=== PATIENT | female | born 1960 | race Caucasian/White ===

== ENCOUNTER 2016-11-26 22:43 | Emergency (ER) | payer OTHER ==
[2016-11-26 22:58] VITALS: BP 121/71
--- NOTE | 2016-11-26 23:01 | EDM.PDOC ---
ED HPI GENERAL MEDICAL PROBLEM - General Chief Complaint: Genitourinary Problem Stated Complaint: ABD PAIN Time Seen by Provider: 11/26/16 22:56 Source of Information: Reports: Patient History Limitations: Reports: No limitations - History of Present Illness INITIAL COMMENTS - FREE TEXT/NARRATIVE: 56 yo [place] Female c/o low abdomen pain since Thursday with frequent urination. Denies fever or chills or back pain. Pt. states she stopped her menses @ 50yo and has now noted some spotting. Onset Date: 11/23/16 Onset Time: 12:00 Duration: Day(s): Location: Reports: abdomen (low abdomen) Quality: Reports: Ache, Burning Associated Symptoms: Reports: no other symptoms Lower Abdomen Pain Score (Numeric/FACES): 7 - Related Data Allergies Allergy/AdvReac Type Severity Reaction Status Date / Time No Known Allergies Allergy Verified 11/26/16 22:53 Home Meds: Home Meds traMADol [Ultram] 50 mg PO ASDIRECTED PRN 09/12/16 [History] Past Medical History - Past Health History Medical/Surgical History: Denies Medical/Surgical History HEENT History: Reports: None Cardiovascular History: Reports: None Respiratory History: Reports: None Gastrointestinal History: Reports: None Genitourinary History: Reports: None 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 Musculoskeletal History: Reports: Arthritis, Osteoarthritis Neurological History: Reports: None Psychiatric History: Reports: None Endocrine/Metabolic History: Reports: None Hematologic History: Reports: None Immunologic History: Reports: None Oncologic (Cancer) History: Reports: None Dermatologic History: Reports: None - Infectious Disease History Infectious Disease History: Reports: None - Past Surgical History Head Surgeries/Procedures: Reports: None Other Musculoskeletal Surgeries/Procedures:: arm surgery Social & Family History - Family History Family Medical History: Noncontributory - Tobacco Use Smoking Status *Q: Current Every Day Smoker Years of Tobacco use: 10 Packs/Tins Daily: 0.2 Used Tobacco, but Quit: No Month Tobacco Last Used: august Second Hand Smoke Exposure: Yes - Caffeine Use Caffeine Use: Reports: Coffee - Alcohol Use Days Per Week of Alcohol Use: 0 - Recreational Drug Use Recreational Drug Use: No - Living Situation & Occupation Living situation: Reports: , with family Occupation: employed ED ROS GENERAL - Review of Systems Review Of Systems: See Below Constitutional: Reports: no symptoms HEENT: Reports: No symptoms Respiratory: Reports: No Symptoms Cardiovascular: Reports: No symptoms Endocrine: Reports: no symptoms GI/Abdominal: Reports: Abdominal pain (low abdomen/ supra pubic) : Reports: pain, urgency Musculoskeletal: Reports: no symptoms Skin: Reports: no symptoms Neurological: Reports: No Symptoms Psychiatric: Reports: No symptoms Hematologic/Lymphatic: Reports: no symptoms Immunologic: Reports: no symptoms ED EXAM, GENERAL - Physical Exam Exam: See Below Exam Limited By: No limitations General Appearance: no apparent distress, obese Eye Exam: bilateral eye: EOMI Nose: normal inspection Throat/Mouth: Normal inspection Head: atraumatic Neck: normal inspection Respiratory/Chest: no respiratory distress, lungs clear Cardiovascular: normal peripheral pulses, regular rate, rhythm GI/Abdominal: tender (supra pubic area) Back Exam: normal inspection Extremities: normal inspection Neurological: alert, oriented Psychiatric: normal affect Skin Exam: Warm Lymphatic: no adenopathy Course - Vital Signs Last Recorded V/S: Last Vital Signs Temp 35.4 C 11/26/16 22:50 Pulse 75 11/26/16 22:50 Resp 18 11/26/16 22:50 BP 121/71 11/26/16 22:50 Pulse Ox 99 11/26/16 22:50 - Orders/Labs/Meds Orders: Active Orders 24 hr Category Date Time Status CULTURE URINE [RM] Stat Lab 11/26/16 22:52 Received Labs: Laboratory Tests 11/26/16 Range/Units 22:52 Urine Color Yellow (YELLOW) Urine Appearance Turbid (CLEAR) Urine pH 6.0 (5.0-9.0) Ur Specific [place] >= 1.030 (1.005-1.030) Urine Protein 100 H (NEGATIVE) Urine Glucose (UA) Negative (NEGATIVE) Urine Ketones Trace H (NEGATIVE) Urine Occult Blood Large H (NEGATIVE) Urine Nitrite Negative (NEGATIVE) Urine Bilirubin Negative (NEGATIVE) Urine Urobilinogen 0.2 (0.2-1.0) mg/dL Ur Leukocyte Esterase Small H (NEGATIVE) Urine RBC >100 H /HPF Urine WBC 30-40 H (0-5/HPF) /HPF Ur Epithelial Cells Few /HPF Urine Bacteria Many H (0-FEW/HPF) /HPF Meds: Medications Discontinued Medications Generic Name Dose Route Start Last Admin Trade Name Freq PRN Reason Stop Dose Admin Levofloxacin 500 mg 11/26/16 23:11 11/26/16 23:26 Levaquin PO 11/26/16 23:12 500 mg ONETIME ONE Administration Phenazopyridine HCl 190 mg 11/26/16 23:11 11/26/16 23:22 Urinary Pain Relief PO 11/26/16 23:12 190 mg ONETIME ONE Administration Departure - Departure Time of Disposition: 23:27 Disposition: Home, Self-Care 01 Condition: good Clinical Impression: UTI (urinary tract infection) Qualifiers: Urinary tract infection type: acute cystitis Hematuria presence: with hematuria Qualified Code(s): N30.01 - Acute cystitis with hematuria Instructions: Urinary Tract Infection, Adult, [id number] Forms: ED Department Discharge Additional Instructions: Increase intake of fluids ( Water / Cranberry Juice) Take Medication as prescribed and complete: Levaquin 500mg QD # 6 Pyridium 100mg take 1 TID # 9 Off work slip given F/U w/ PCP - My Orders Last 24 Hours: My Active Orders 11/26/16 22:52 CULTURE URINE [RM] Stat - Assessment/Plan Last 24 Hours: My Active Orders 11/26/16 22:52 CULTURE URINE [RM] Stat
[2016-11-26] MEDS ORDERED: Phenazopyridine 95 MG Tab PO ONE (23:11)
[2016-11-26] MEDS ORDERED: Levofloxacin 500 MG Tab PO ONE (23:11)
[2016-11-26] MEDS ORDERED: Levofloxacin 500 MG Tab ONE (23:25)
== END 2016-11-26 23:39 | disposition home or self-care (01) ==
LOC: DL.ED 22:43
DX: N30.01 Acute cystitis with hematuria (principal); M19.90 Unspecified osteoarthritis, unspecified site; F17.210 Nicotine dependence, cigarettes, uncomplicated
CPT/HCPCS: 81001; 87086; 99283; A9270; 87088; 87186

== ENCOUNTER 2017-01-27 17:32 | Emergency (ER) | payer OTHER ==
[2017-01-27 18:06] VITALS: BP 130/52
--- NOTE | 2017-01-27 19:54 | EDM.PDOC ---
ED HPI GENERAL MEDICAL PROBLEM - General Chief Complaint: Lower Extremity Injury/Pain Stated Complaint: KNEE PAIN/[id number] Time Seen by Provider: 01/27/17 19:52 Source of Information: Reports: Patient History Limitations: Reports: No Limitations - History of Present Illness INITIAL COMMENTS - FREE TEXT/NARRATIVE: pain left knee since . Has had shots in knee couple months ago wonders if worn off. No injury. Has ortho appointment scheduled. Left Knee Pain Score (Numeric/FACES): 8 - Related Data Allergies Allergy/AdvReac Type Severity Reaction Status Date / Time No Known Allergies Allergy Verified 01/27/17 18:24 Home Meds: Home Meds . 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 Musculoskeletal History: Reports: Arthritis, Osteoarthritis Neurological History: Reports: None Psychiatric History: Reports: None Endocrine/Metabolic History: Reports: None Hematologic History: Reports: None Immunologic History: Reports: None Oncologic (Cancer) History: Reports: None Dermatologic History: Reports: None - Infectious Disease History Infectious Disease History: Reports: None - Past Surgical History Head Surgeries/Procedures: Reports: None Other Musculoskeletal Surgeries/Procedures:: arm surgery Social & Family History - Family History Family Medical History: Noncontributory - Tobacco Use Smoking Status *Q: Current Every Day Smoker Years of Tobacco use: 10 Packs/Tins Daily: 0.2 Used Tobacco, but Quit: No Month Tobacco Last Used: august Hand Smoke Exposure: Yes - Caffeine Use Caffeine Use: Reports: Coffee - Alcohol Use Days Per Week of Alcohol Use: 0 - Recreational Drug Use Recreational Drug Use: No - Living Situation & Occupation Living situation: Reports: , with Family Occupation: Employed Review of Systems - Review of Systems Review Of Systems: See Below Constitutional: Reports: No Symptoms Musculoskeletal: Reports: Joint Pain (left knee pain), Joint Swelling Skin: Reports: No Symptoms Trauma Exam - Physical Exam Exam: See Below Exam Limited By: No Limitations General Appearance: Reports: Alert, Mild Distress Head: Reports: Atraumatic, Normocephalic Ears: Reports: Normal External Exam Nose: Reports: Normal Inspection Throat/Mouth: Reports: Normal Inspection Respiratory Exam: Reports: No Respiratory Distress Cardiovascular: Reports: Normal Peripheral Pulses Extremities: No Evidence of Injury, Normal Range of Motion, Tenderness (below patella, slight swelling medial lower aspect, no redness or warmth. No crepitus. ), Other (increased pain with weight bearing, gait steady non antalgic.) Skin: Reports: Normal Color, Warm/Dry Course - Vital Signs Last Recorded V/S: Last Vital Signs Temp 98.2 F 01/27/17 18:05 Pulse 81 01/27/17 18:05 Resp 18 01/27/17 18:05 BP 130/52 L 01/27/17 18:05 Pulse Ox 100 01/27/17 18:05 Departure - Departure Time of Disposition: 20:16 Disposition: Home, Self-Care 01 Condition: good Clinical Impression: Left knee pain Qualifiers: Chronicity: chronic Qualified Code(s): M25.562 - Pain in left knee - Discharge Information Instructions: Knee Pain Forms: ED Department Discharge Additional Instructions: alternate tylenol and ibuprofen for discomfort rest, ice follow up in clinic
== END 2017-01-27 20:25 | disposition home or self-care (01) ==
LOC: DL.ED 17:32
DX: M25.562 Pain in left knee (principal); M19.90 Unspecified osteoarthritis, unspecified site; F17.210 Nicotine dependence, cigarettes, uncomplicated; Z98.890 Other specified postprocedural states
CPT/HCPCS: 73560-LT; 99283

== ENCOUNTER 2017-06-09 20:30 | Emergency (ER) | payer OTHER, MEDICAID ==
[2017-06-09 20:52] VITALS: BP 157/63
--- NOTE | 2017-06-10 00:09 | EDM.PDOC ---
ED HPI GENERAL MEDICAL PROBLEM - General Stated Complaint: INJURED HAND Time Seen by Provider: 06/10/17 00:05 Source of Information: Reports: Patient History Limitations: Reports: No Limitations - History of Present Illness INITIAL COMMENTS - FREE TEXT/NARRATIVE: This 57 yo female patient reports to the ED with pain and swelling in her right hand. The patient reports she got her hand stuck in a window that was being closed. The patient reports increased swelling and pain in her right hand since the incident. Onset: Today Duration: Constant Location: Reports: Upper Extremity, Right Quality: Reports: Ache, Dull, Throbbing Severity: Moderate Improves with: Reports: Rest Worsens with: Reports: Movement Context: Reports: Trauma Associated Symptoms: Reports: No Other Symptoms Right Hand Pain Score (Numeric/FACES): 10 - Related Data Allergies Allergy/AdvReac Type Severity Reaction Status Date / Time No Known Allergies Allergy Verified 01/27/17 18:24 Home Meds: Home Meds . 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 Musculoskeletal History: Reports: Arthritis, Osteoarthritis Neurological History: Reports: None Psychiatric History: Reports: None Endocrine/Metabolic History: Reports: None Hematologic History: Reports: None Immunologic History: Reports: None Oncologic (Cancer) History: Reports: None Dermatologic History: Reports: None - Infectious Disease History Infectious Disease History: Reports: None - Past Surgical History Head Surgeries/Procedures: Reports: None Other Musculoskeletal Surgeries/Procedures:: arm surgery Social & Family History - Family History Family Medical History: Noncontributory - Tobacco Use Smoking Status *Q: Current Every Day Smoker Years of Tobacco use: 10 Packs/Tins Daily: 0.2 Used Tobacco, but Quit: No Month Tobacco Last Used: august Hand Smoke Exposure: Yes - Caffeine Use Caffeine Use: Reports: Coffee - Alcohol Use Days Per Week of Alcohol Use: 0 - Recreational Drug Use Recreational Drug Use: No - Living Situation & Occupation Living situation: Reports: , with Family Occupation: Employed Review of Systems - Review of Systems Review Of Systems: ROS reveals no pertinent complaints other than HPI. ED EXAM, GENERAL - Physical Exam Exam: See Below Exam Limited By: No Limitations General Appearance: Alert, WD/WN, Mild Distress Eye Exam: Bilateral Eye: EOMI, Normal Inspection, PERRL Ears: Normal External Exam, Normal Canal, Hearing Grossly Normal, Normal TMs Nose: Normal Inspection, Normal Mucosa, No Blood Throat/Mouth: Normal Inspection, Normal Lips, Normal Teeth, Normal Gums, Normal Oropharynx, Normal Voice, No Airway Compromise Head: Atraumatic, Normocephalic Neck: Normal Inspection, Supple, Non-Tender, Full Range of Motion Respiratory/Chest: No Respiratory Distress, Lungs Clear, Normal Breath Sounds, No Accessory Muscle Use, Chest Non-Tender Cardiovascular: Normal Peripheral Pulses, Regular Rate, Rhythm, No Edema, No Gallop, No JVD, No Murmur, No Rub GI/Abdominal: Normal Bowel Sounds, Soft, Non-Tender, No Organomegaly, No Distention, No Abnormal Bruit, No Mass (Female) Exam: Deferred Rectal (Female) Exam: Deferred Back Exam: Normal Inspection, Full Range of Motion, NT Extremities: Joint Swelling (right hand 2nd and 3rd MCP joints) Neurological: Alert, Oriented, CN II-XII Intact, Normal Cognition, Normal Gait, Normal Reflexes, No Motor/Sensory Deficits Psychiatric: Normal Affect, Normal Mood Skin Exam: Warm, Dry, Intact, Normal Color, No Rash Lymphatic: No Adenopathy Course - Vital Signs Last Recorded V/S: Last Vital Signs Temp 36.7 C 06/09/17 20:48 Pulse 82 06/09/17 20:48 Resp 20 06/09/17 20:48 BP 157/63 H 06/09/17 20:48 Pulse Ox 97 06/09/17 20:48 Departure - Departure Time of Disposition: 00:10 Disposition: Home, Self-Care 01 Condition: Fair Clinical Impression: Contusion of right hand Qualifiers: Encounter type: initial encounter Qualified Code(s): S60.221A - Contusion of right hand, initial encounter - Discharge Information Instructions: Hand Contusion, [id number] Forms: ED Department Discharge Care Plan Goals: The patient was advised of the examination and x-ray results during the visit. The patient's hand was wrapped with an TABITHA wrap and an ice pack was applied. The patient was encouraged to rest, ice, compress and elevate the injured extremity. If the patient has any additional symptoms or concerns, the patient should follow-up with her primary care facility or return to the emergency department.
== END 2017-06-10 00:14 | disposition home or self-care (01) ==
LOC: DL.ED 20:30
DX: S60.221A Contusion of right hand, initial encounter (principal); M25.441 Effusion, right hand; F17.210 Nicotine dependence, cigarettes, uncomplicated; W23.0XXA Caught, crushed, jammed, or pinched between moving objects, initial encounter
CPT/HCPCS: 73130-RT; 99283

== ENCOUNTER 2018-01-17 18:54 | Emergency (ER) | payer MEDICAID, OTHER ==
[2018-01-17] MEDS ORDERED: Hydrocortisone/Neomycin/Polymyxin B Otic Susp 10 ML Bottle EARRT ONE (18:55)
[2018-01-17 19:58] VITALS: BP 121/58
[2018-01-17] MEDS ORDERED: Acetaminophen/HYDROcodone 325-10 MG Tab PO ONE (20:17)
[2018-01-17] MEDS ORDERED: Amoxicillin 500 MG Cap PO ONE (20:17)
--- NOTE | 2018-01-17 20:24 | EDM.PDOC ---
ED HPI GENERAL MEDICAL PROBLEM - General Chief Complaint: ENT Problem Stated Complaint: POSSIBEL BUG BITE Time Seen by Provider: 01/17/18 20:19 Source of Information: Reports: Patient History Limitations: Reports: No Limitations - History of Present Illness INITIAL COMMENTS - FREE TEXT/NARRATIVE: c/o right ear pain today and noticed swelling in area. last time had bad ear infection 5 years ago. Right Ear Pain Score (Numeric/FACES): 8 - Related Data Allergies Allergy/AdvReac Type Severity Reaction Status Date / Time No Known Allergies Allergy Verified 01/17/18 19:52 Home Meds: Home Meds . 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 Musculoskeletal History: Reports: Arthritis, Osteoarthritis Neurological History: Reports: None Psychiatric History: Reports: None Endocrine/Metabolic History: Reports: None Hematologic History: Reports: None Immunologic History: Reports: None Oncologic (Cancer) History: Reports: None Dermatologic History: Reports: None - Infectious Disease History Infectious Disease History: Reports: None - Past Surgical History Head Surgeries/Procedures: Reports: None Other Musculoskeletal Surgeries/Procedures:: arm surgery Social & Family History - Family History Family Medical History: Noncontributory - Tobacco Use Smoking Status *Q: Current Some Day Smoker Years of Tobacco use: 10 Packs/Tins Daily: 0.1 - Caffeine Use Caffeine Use: Reports: Coffee, Tea - Recreational Drug Use Recreational Drug Use: No - Living Situation & Occupation Living situation: Reports: , with Family Occupation: Employed ED ROS ENT - Review of Systems Review Of Systems: ROS reveals no pertinent complaints other than HPI. ED EXAM, ENT - Physical Exam Exam: See Below Exam Limited By: No Limitations General Appearance: Alert, WD/WN, Mild Distress, Other (ear pain) Ears: Canal Swelling, TM Erythema, Other (right) Nose: Normal Inspection Mouth/Throat: Normal Inspection Head: Atraumatic Neck: Non-Tender, Full Range of Motion, Lymphadenopathy (R), Other (post auricular) Respiratory/Chest: No Respiratory Distress Cardiovascular: Regular Rate, Rhythm GI/Abdominal: Soft, Non-Tender Neurological: Alert, Oriented, Normal Cognition, Normal Gait, No Motor/Sensory Deficits Psychiatric: Tearful Skin: Warm, Dry, Normal Color Lymphatic: Other (right leandra auricular) Course - Vital Signs Last Recorded V/S: Last Vital Signs Temp 36.7 C 01/17/18 19:52 Pulse 66 01/17/18 19:52 Resp 16 01/17/18 19:52 BP 121/58 L 01/17/18 19:52 Pulse Ox 100 01/17/18 19:52 - Orders/Labs/Meds Meds: Medications Discontinued Medications Generic Name Dose Route Start Last Admin Trade Name Freq PRN Reason Stop Dose Admin Hydrocodone Bitart/Acetaminophen 1 tab 01/17/18 20:17 [place] 325-10 Mg PO 01/17/18 20:18 ONETIME ONE Amoxicillin 500 mg 01/17/18 20:17 Amoxil PO 01/17/18 20:18 ONETIME ONE Departure - Departure Time of Disposition: 20:22 Disposition: Home, Self-Care 01 Condition: Good Clinical Impression: Otitis externa Qualifiers: Otitis externa type: other infective Chronicity: acute Laterality: right Qualified Code(s): H60.391 - Other infective otitis externa, right ear Otitis media Qualifiers: Otitis media type: suppurative Chronicity: acute Laterality: right Recurrence: not specified as recurrent Spontaneous tympanic membrane rupture: without spontaneous rupture Qualified Code(s): H66.001 - Acute suppurative otitis media without spontaneous rupture of ear drum, right ear - Discharge Information Instructions: Otitis Externa, [id number] Additional Instructions: 1) don't get water into right ear 2) follow up at clinic 3) recheck as needed rx given; amox 250mg tid x 30 vicodin 5/325mg bid prn x 6 rx togo; corticosporin otic 2 drops qid x 1 week
[2018-01-17] MEDS ORDERED: Hydrocortisone/Neomycin/Polymyxin B Otic Susp 10 ML Bottle ONE (20:32)
== END 2018-01-17 20:45 | disposition home or self-care (01) ==
LOC: DL.ED 18:54
DX: H60.391 Other infective otitis externa, right ear (principal); H66.001 Acute suppurative otitis media without spontaneous rupture of ear drum, right ear; F17.210 Nicotine dependence, cigarettes, uncomplicated
CPT/HCPCS: 99282; A9270

== ENCOUNTER 2018-03-07 20:36 | Emergency (ER) | payer MEDICAID, OTHER ==
[2018-03-07 21:07] VITALS: BP 116/48
== END 2018-03-07 23:34 | disposition left against medical advice (07) ==
LOC: DL.ED 20:36
DX: Z53.21 Procedure and treatment not carried out due to patient leaving prior to being seen by health care provider (principal)

== ENCOUNTER 2018-05-13 00:25 | Emergency (ER) | payer MEDICAID, OTHER ==
[2018-05-13] MEDS ORDERED: Meclizine 12.5 MG Tab PO ONE ×2 (00:26→00:55)
[2018-05-13] MEDS ORDERED: Ondansetron 4 MG Tab.DIS PO ONE ×2 (00:26→00:55)
[2018-05-13 00:45] VITALS: BP 147/55
[2018-05-13] MEDS ORDERED: Ketorolac 30 MG/ML SDV IVPUSH ONE (00:59)
[2018-05-13] MEDS ORDERED: Ketorolac 30 MG/ML SDV IM ONE (01:06)
[2018-05-13] MEDS ORDERED: Ondansetron 4 MG Tab.DIS ONE (01:38)
[2018-05-13] MEDS ORDERED: Meclizine 12.5 MG Tab ONE (01:39)
--- NOTE | 2018-05-13 01:43 | EDM.PDOC ---
ED HPI GENERAL MEDICAL PROBLEM - General Chief Complaint: General Stated Complaint: LIGHTHEADED, DIZZY, VOMITING [id number] Time Seen by Provider: 05/13/18 00:30 Source of Information: Reports: Patient History Limitations: Reports: No Limitations - History of Present Illness INITIAL COMMENTS - FREE TEXT/NARRATIVE: Cold sx x one week, past 24 hours increased ear pain starting on left now some on right ear, dizzy, worse with movement and turning head, similar symptoms in past. Nausea with vomiting with movement. No fever or chills. No weakness , sinus type headache. 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 Musculoskeletal History: Reports: Arthritis, Osteoarthritis Neurological History: Reports: None Psychiatric History: Reports: None Endocrine/Metabolic History: Reports: None Hematologic History: Reports: None Immunologic History: Reports: None Oncologic (Cancer) History: Reports: None Dermatologic History: Reports: None - Infectious Disease History Infectious Disease History: Reports: None - Past Surgical History Head Surgeries/Procedures: Reports: None Other Musculoskeletal Surgeries/Procedures:: arm surgery Social & Family History - Family History Family Medical History: Noncontributory - Tobacco Use Smoking Status *Q: Current Every Day Smoker Years of Tobacco use: 40 Packs/Tins Daily: 3 - Caffeine Use Caffeine Use: Reports: None - Recreational Drug Use Recreational Drug Use: No - Living Situation & Occupation Living situation: Reports: , with Family Occupation: Employed ED ROS GENERAL - Review of Systems Review Of Systems: ROS reveals no pertinent complaints other than HPI. ED EXAM, GENERAL - Physical Exam Exam: See Below Exam Limited By: No Limitations General Appearance: Alert, Mild Distress Eye Exam: Bilateral Eye: EOMI, PERRL Ears: Normal External Exam Ear Exam: Bilateral Ear: TM Dull (fluid bilateral greater on left) Nose: Normal Inspection Throat/Mouth: Normal Inspection Head: Atraumatic, Normocephalic, Sinus Tenderness (frontal ethmoid) Neck: Normal Inspection, Non-Tender, Full Range of Motion Respiratory/Chest: No Respiratory Distress, Lungs Clear, Normal Breath Sounds Cardiovascular: Normal Peripheral Pulses, Regular Rate, Rhythm GI/Abdominal: Normal Bowel Sounds Extremities: Normal Inspection, Normal Range of Motion Neurological: Alert, Oriented, Normal Cognition, Normal Reflexes, No Motor/ Sensory Deficits. No: Sensory/Motor Deficit Psychiatric: Normal Affect, Normal Mood Course - Vital Signs Last Recorded V/S: Last Vital Signs Temp 97.2 F 05/13/18 00:29 Pulse 70 05/13/18 00:29 Resp 19 05/13/18 00:29 BP 147/55 H 05/13/18 00:29 Pulse Ox 98 05/13/18 00:29 Orthostatic Blood Pressure [ 136/54 Supine] Orthostatic Blood Pressure [ 127/54 Standing] Orthostatic Blood Pressure [ 147/55 Sitting] - Orders/Labs/Meds Meds: Medications Discontinued Medications Generic Name Dose Route Start Last Admin Trade Name Chrisq PRN Reason Stop Dose Admin Ketorolac Tromethamine 30 mg 05/13/18 00:59 05/13/18 01:08 Toradol IVPUSH 05/13/18 01:00 Not Given ONETIME ONE Ketorolac Tromethamine 30 mg 05/13/18 01:06 05/13/18 01:08 Toradol IM 05/13/18 01:07 30 mg ONETIME ONE Administration Meclizine HCl 25 mg 05/13/18 00:55 05/13/18 01:03 Antivert PO 05/13/18 00:56 25 mg ONETIME ONE Administration Ondansetron HCl 4 mg 05/13/18 00:55 05/13/18 01:02 Zofran Odt PO 05/13/18 00:56 4 mg ONETIME ONE Administration Departure - Departure Time of Disposition: 01:37 Disposition: Home, Self-Care 01 Condition: Good Clinical Impression: Labyrinthitis of left ear URI (upper respiratory infection) Qualifiers: URI type: unspecified URI Qualified Code(s): J06.9 - Acute upper respiratory infection, unspecified - Discharge Information *PRESCRIPTION DRUG MONITORING PROGRAM REVIEWED*: Not Applicable Instructions: Labyrinthitis, [id number] Additional Instructions: rest, change position slowly drink fluids, slowly advance diet as tolerated axithromycin 500mg today then 200mg daily for 4 days meclizine 25mg every 6 hours as needed for dizziness zofran ODT 4mg one every 6 hours as needed for nausea vomiting follow up if symptoms worsen
== END 2018-05-13 01:50 | disposition home or self-care (01) ==
LOC: DL.ED 00:25
DX: H83.02 Labyrinthitis, left ear (principal); J06.9 Acute upper respiratory infection, unspecified; F17.210 Nicotine dependence, cigarettes, uncomplicated
CPT/HCPCS: 96372; 99283; A9270; J1885

== ENCOUNTER 2019-08-22 02:56 | Emergency (ER) | payer MEDICAID, OTHER ==
[2019-08-22] MEDS ORDERED: Phenazopyridine 95 MG Tab PO ONE (03:08)
--- NOTE | 2019-08-22 03:08 | EDM.PDOC ---
ED HPI GENERAL MEDICAL PROBLEM - General Chief Complaint: Genitourinary Problem Stated Complaint: AMBULANCE Time Seen by Provider: 08/22/19 03:04 Source of Information: Reports: Patient History Limitations: Reports: No Limitations - History of Present Illness INITIAL COMMENTS - FREE TEXT/NARRATIVE: onset suprapubic pain yesterday then tonight started peeing blood. 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 Musculoskeletal History: Reports: Arthritis, Osteoarthritis Neurological History: Reports: None Psychiatric History: Reports: Anxiety, Depression Endocrine/Metabolic History: Reports: None Hematologic History: Reports: None Immunologic History: Reports: None Oncologic (Cancer) History: Reports: None Dermatologic History: Reports: None - Infectious Disease History Infectious Disease History: Reports: None - Past Surgical History Head Surgeries/Procedures: Reports: None Other Musculoskeletal Surgeries/Procedures:: arm surgery Social & Family History - Family History Family Medical History: Noncontributory - Caffeine Use Caffeine Use: Reports: Coffee - Living Situation & Occupation Living situation: Reports: , with Family Occupation: Employed ED ROS GENERAL - Review of Systems Review Of Systems: Comprehensive ROS is negative, except as noted in HPI. ED EXAM, RENAL/ - Physical Exam Exam: See Below Exam Limited By: No Limitations General Appearance: Alert, WD/WN, Mild Distress, Other (discomfort). No: Active Emesis Ears: Hearing Grossly Normal Throat/Mouth: Normal Voice, No Airway Compromise Head: Atraumatic Neck: Non-Tender, Full Range of Motion Respiratory/Chest: No Respiratory Distress Cardiovascular: Regular Rate, Rhythm GI/Abdominal: Tender, Other (suprapubic). No: Distended, Guarding, Rigid, Rebound Neurological: Alert, Oriented, Normal Cognition, Normal Gait, No Motor/Sensory Deficits Psychiatric: Tearful Skin Exam: Warm, Dry, Normal Color Lymphatic: No Adenopathy Course - Vital Signs Last Recorded V/S: Last Vital Signs Temp 36.6 C 08/22/19 06:25 Pulse 76 08/22/19 06:25 Resp 17 08/22/19 06:25 BP 127/65 08/22/19 06:25 Pulse Ox 100 08/22/19 06:25 - Orders/Labs/Meds Labs: Laboratory Tests 08/22/19 08/22/19 08/22/19 Range/Units 03:00 03:09 03:09 WBC 18.2 H (5.0-10.0) 10^3/uL RBC 4.52 (4.2-5.4) 10^6/uL Hgb 12.3 (12.0-16.0) g/dL Hct 37.9 (37.0-47.0) % MCV 83.8 D (80-100) fL MCH 27.2 (27.0-34.0) pg MCHC 32.5 L (33.0-35.0) g/dL Plt Count 388 (150-450) 10^3/uL Neut % (Auto) 79.3 H (42.2-75.2) % Lymph % (Auto) 12.9 L (20.5-50.1) % Carroll % (Auto) 5.9 (2-8) % Eos % (Auto) 1.6 (1.0-3.0) % Baso % (Auto) 0.3 (0.0-1.0) % PT 8.9 L (9.0-12.0) SEC INR 0.9 (0.9-1.2) APTT 31.2 (22.0-34.0) SEC Sodium (135-145) mmol/L Potassium (3.6-5.0) mmol/L Chloride (101-111) mmol/L Carbon Dioxide (21.0-31.0) mmol/L Anion Gap BUN (7-18) mg/dL Creatinine (0.6-1.3) mg/dL Est Cr Clr Drug Dosing mL/min Estimated GFR (MDRD) BUN/Creatinine Ratio Glucose (74-105) mg/dL Lactic Acid (0.5-2.2) mmol/L Calcium (8.4-10.2) mg/dl Total Bilirubin (0.2-1.0) mg/dL AST (10-42) IU/L ALT (10-60) IU/L Alkaline Phosphatase (42-121) IU/L Total Protein (6.7-8.2) g/dl Albumin (3.2-5.5) g/dl Globulin Albumin/Globulin Ratio Urine Color Yellow (YELLOW) Urine Appearance Cloudy (CLEAR) Urine pH 5.5 (5.0-9.0) Ur Specific Patten >= 1.030 (1.005-1.030) Urine Protein >=300 H (NEGATIVE) Urine Glucose (UA) Negative (NEGATIVE) Urine Ketones Negative (NEGATIVE) Urine Occult Blood Large H (NEGATIVE) Urine Nitrite Negative (NEGATIVE) Urine Bilirubin Negative (NEGATIVE) Urine Urobilinogen 0.2 (0.2-1.0) mg/dL Ur Leukocyte Esterase Large H (NEGATIVE) Urine RBC >100 H /HPF Urine WBC >100 H (0-5/HPF) /HPF Ur Epithelial Cells Few (NOT SEEN) /HPF Urine Bacteria Many H (0-FEW/HPF) /HPF Urine Mucus Few H (NOT SEEN) /LPF 08/22/19 08/22/19 Range/Units 03:09 03:09 WBC (5.0-10.0) 10^3/uL RBC (4.2-5.4) 10^6/uL Hgb (12.0-16.0) g/dL Hct (37.0-47.0) % MCV (80-100) fL MCH (27.0-34.0) pg MCHC (33.0-35.0) g/dL Plt Count (150-450) 10^3/uL Neut % (Auto) (42.2-75.2) % Lymph % (Auto) (20.5-50.1) % Carroll % (Auto) (2-8) % Eos % (Auto) (1.0-3.0) % Baso % (Auto) (0.0-1.0) % PT (9.0-12.0) SEC INR (0.9-1.2) APTT (22.0-34.0) SEC Sodium 136 (135-145) mmol/L Potassium 4.1 (3.6-5.0) mmol/L Chloride 102 (101-111) mmol/L Carbon Dioxide 26.0 (21.0-31.0) mmol/L Anion Gap 12.1 BUN 10 (7-18) mg/dL Creatinine 0.7 (0.6-1.3) mg/dL Est Cr Clr Drug Dosing 68.44 mL/min Estimated GFR (MDRD) > 60 BUN/Creatinine Ratio 14.28 Glucose 145 H (74-105) mg/dL Lactic Acid 2.2 (0.5-2.2) mmol/L Calcium 8.6 (8.4-10.2) mg/dl Total Bilirubin 0.3 (0.2-1.0) mg/dL AST 34 (10-42) IU/L ALT 38 (10-60) IU/L Alkaline Phosphatase 101 (42-121) IU/L Total Protein 7.5 (6.7-8.2) g/dl Albumin 3.9 (3.2-5.5) g/dl Globulin 3.6 Albumin/Globulin Ratio 1.08 Urine Color (YELLOW) Urine Appearance (CLEAR) Urine pH (5.0-9.0) Ur Specific Patten (1.005-1.030) Urine Protein (NEGATIVE) Urine Glucose (UA) (NEGATIVE) Urine Ketones (NEGATIVE) Urine Occult Blood (NEGATIVE) Urine Nitrite (NEGATIVE) Urine Bilirubin (NEGATIVE) Urine Urobilinogen (0.2-1.0) mg/dL Ur Leukocyte Esterase (NEGATIVE) Urine RBC /HPF Urine WBC (0-5/HPF) /HPF Ur Epithelial Cells (NOT SEEN) /HPF Urine Bacteria (0-FEW/HPF) /HPF Urine Mucus (NOT SEEN) /LPF Meds: Medications Discontinued Medications Generic Name Dose Route Start Last Admin Trade Name Freq PRN Reason Stop Dose Admin Sodium Chloride 1,000 mls @ 500 mls/hr 08/22/19 03:15 08/22/19 03:15 Normal Saline IV 500 mls/hr ASDIRECTED ELEUTERIO Administration Ceftriaxone Sodium 1,000 mg/ 100 mls @ 200 mls/hr 08/22/19 03:38 08/22/19 03: 57 Sodium Chloride IV 08/22/19 04:07 200 mls/hr ONETIME ONE Administration Phenazopyridine HCl 95 mg 08/22/19 03:08 08/22/19 03:15 Urinary Pain Relief PO 08/22/19 03:09 95 mg ONETIME ONE Administration - Re-Assessments/Exams Free Text/Narrative Re-Assessment/Exam: 08/22/19 04:01 results discussed with pt. Departure - Departure Time of Disposition: 06:30 Disposition: Home, Self-Care 01 Condition: Good Clinical Impression: UTI (urinary tract infection) Qualifiers: Urinary tract infection type: acute cystitis Hematuria presence: with hematuria Qualified Code(s): N30.01 - Acute cystitis with hematuria - Discharge Information Instructions: Urinary Tract Infection, Adult, [id number] Referrals: PCP,Unobtain [Primary Care Provider] - Forms: ED Department Discharge Additional Instructions: 1) drink lots of liquids 2) take tylenol or motrin for fever 3) follow up at clinic rx given; keflex 250mg qid x 40 pyridium 100mg tid prn x 12 Sepsis Event Note - Focused Exam Date Exam was Performed: 08/26/19 Time Exam was Performed: 00:15
[2019-08-22] MEDS ORDERED: Sodium Chloride 0.9% 1,000 ML IV SCH (03:15)
[2019-08-22 03:37] LABS: ANION GAP 12.1; CHLORIDE,CL 102 mmol/L (101-111); SODIUM,NA 136 mmol/L (135-145)
[2019-08-22 06:25] VITALS: BP 127/65; PULSE 76
== END 2019-08-22 06:30 | disposition home or self-care (01) ==
LOC: DL.ED 02:56
DX: N30.01 Acute cystitis with hematuria (principal)
CPT/HCPCS: 36415; 80053; 81001; 83605; 85025; 85610; 85730; 87040; 87086; 87088; 87186; 96361; 96365; 99283-25; A9270-GY; J0696; J7030; J7050

== ENCOUNTER 2019-10-01 21:42 | Emergency (ER) | payer OTHER ==
[2019-10-01 22:24] VITALS: BP 133/40; PULSE 61
[2019-10-01] MEDS ORDERED: Ketorolac 30 MG/ML SDV IM ONE (23:37)
--- NOTE | 2019-10-01 23:41 | EDM.PDOC ---
ED HPI GENERAL MEDICAL PROBLEM - General Chief Complaint: Genitourinary Problem Stated Complaint: BAD BACK ACHE ALL DAY Time Seen by Provider: 10/01/19 23:38 Source of Information: Reports: Patient History Limitations: Reports: No Limitations - History of Present Illness INITIAL COMMENTS - FREE TEXT/NARRATIVE: patient comes emergency department today with complaints of left lower back pain. Since she woke up yesterday she has sharp shooting stabbing left lower back pain. Gets worse when she moves sits up. She denies any recent falls or trauma. No paresthesias of her lower extremities. loss of bowel or bladder. No change in the functionality of her lower extremity.No flank pain. No nausea no vomiting. No hematuria dysuria or urinary frequency. No vaginal discharge drainage.The red back pain like this before. She is only taking Tylenol.no abdominal pain. Normal bowel movement today and yesterday. Flank Pain Score (Numeric/FACES): 8 - Related Data Allergies Allergy/AdvReac Type Severity Reaction Status Date / Time No Known Allergies Allergy Verified 10/01/19 22:29 Home Meds: Home Meds . 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 Musculoskeletal History: Reports: Arthritis, Osteoarthritis Neurological History: Reports: None Psychiatric History: Reports: Anxiety, Depression Endocrine/Metabolic History: Reports: None Hematologic History: Reports: None Immunologic History: Reports: None Oncologic (Cancer) History: Reports: None Dermatologic History: Reports: None - Infectious Disease History Infectious Disease History: Reports: None - Past Surgical History Head Surgeries/Procedures: Reports: None Other Musculoskeletal Surgeries/Procedures:: arm surgery Social & Family History - Family History Family Medical History: Noncontributory - Tobacco Use Smoking Status *Q: Current Every Day Smoker Years of Tobacco use: 30 Packs/Tins Daily: 0.2 - Caffeine Use Caffeine Use: Reports: Coffee - Recreational Drug Use Recreational Drug Use: No - Living Situation & Occupation Living situation: Reports: , with Family Occupation: Employed ED ROS GENERAL - Review of Systems Review Of Systems: Comprehensive ROS is negative, except as noted in HPI. ED EXAM,LOWER BACK PAIN/INJURY - Physical Exam Exam: See Below Exam Limited By: No Limitations General Appearance: Alert, WD/WN, No Apparent Distress Respiratory/Chest: No Respiratory Distress, Lungs Clear Cardiovascular: Normal Peripheral Pulses, Regular Rate, Rhythm GI/Abdominal: Normal Bowel Sounds, Soft, Non-Tender Back Exam: Paraspinal Tenderness (Very lower left. NO rash sores or lesions. DTRs 2+ equal bilaterally. tenderness on deep plapation. NO bruising swelling or other signs of trauma. ). No: CVA Tenderness (L), CVA Tenderness (R) Extremities: Normal Inspection, Normal Range of Motion, Normal Capillary Refill Neurological: Alert, Normal Mood/Affect, Normal Dorsiflexion, Normal Gait, Normal Reflexes, No Motor/Sensory Deficits, Oriented x 3 Skin Exam: Warm, Dry, Intact, Normal Color, No Rash Course - Vital Signs Last Recorded V/S: Last Vital Signs Temp 36.2 C 10/01/19 22:22 Pulse 61 10/01/19 22:22 Resp 16 10/01/19 22:22 BP 133/40 L 10/01/19 22:22 Pulse Ox 98 10/01/19 22:22 - Orders/Labs/Meds Labs: Laboratory Tests 10/01/19 Range/Units 22:27 Urine Color Yellow (YELLOW) Urine Appearance Clear (CLEAR) Urine pH 7.0 (5.0-9.0) Ur Specific Geff 1.025 (1.005-1.030) Urine Protein Negative (NEGATIVE) Urine Glucose (UA) Negative (NEGATIVE) Urine Ketones Negative (NEGATIVE) Urine Occult Blood Negative (NEGATIVE) Urine Nitrite Negative (NEGATIVE) Urine Bilirubin Negative (NEGATIVE) Urine Urobilinogen 0.2 (0.2-1.0) mg/dL Ur Leukocyte Esterase Negative (NEGATIVE) Urine RBC Not seen /HPF Urine WBC Not seen (0-5/HPF) /HPF Ur Epithelial Cells Few (NOT SEEN) /HPF Amorphous Sediment Few (NOT SEEN) /HPF Urine Bacteria Rare (0-FEW/HPF) /HPF Meds: Medications Discontinued Medications Generic Name Dose Route Start Last Admin Trade Name Freq PRN Reason Stop Dose Admin Ibuprofen 600 mg 10/01/19 23:48 10/02/19 00:02 Motrin PO 10/01/19 23:49 600 mg ONETIME ONE Administration Ketorolac Tromethamine 30 mg 10/01/19 23:37 10/01/19 23:50 Toradol IM 10/01/19 23:38 Not Given ONETIME ONE Orphenadrine Citrate 60 mg 10/01/19 23:37 10/01/19 23:45 Norflex IM 10/01/19 23:38 60 mg ONETIME ONE Administration - Re-Assessments/Exams Free Text/Narrative Re-Assessment/Exam: 10/01/19 23:41 UA is negative. This is really the presentation of musculoskeletal back pain. Ketorolac 30mg Im Norflex 60mg Im 10/02/19 01:08 Pain was much improved after the above therapy. WIll discharge with Flexeril and NSAIDS and exercises. See physical therapy if not improving. The patient is comfortable with this plan and her questions answered. Departure - Departure Time of Disposition: 00:22 Disposition: Home, Self-Care 01 Clinical Impression: Low back pain Qualifiers: Chronicity: acute Back pain laterality: left Sciatica presence: without sciatica Qualified Code(s): M54.5 - Low back pain - Discharge Information Instructions: Back Injury Prevention, [id number], Back Exercises, Easy-to- Read, Pain Medicine Instructions, [id number] Referrals: PCP,None [Primary Care Provider] - Forms: ED Department Discharge Additional Instructions: Tylenol Ibuprofen as needed for pain. See discharge instructions for back exercises to help with the pain. Flexeril, 1 tablet three times a day as needed for pain. #12. RX given to the patient. Heat or ice to the area which ever works best for you. Consider physical therapy with PCP if not improving over the next few days. Return to the ED if new or worsening symptoms. Follow up with PCP in 4-6 days if not improving and consider physical therapy. Sepsis Event Note - Evaluation Sepsis Screening Result: No Definite Risk - Focused Exam Vital Signs: Vital Signs Temp Pulse Resp BP Pulse Ox 10/01/19 22:22 36.2 C 61 16 133/40 L 98 Date Exam was Performed: 10/02/19 Time Exam was Performed: 01:08 - Assessment/Plan Assessment:: Acute lower left back pain without sciatica Plan: Tylenol Ibuprofen as needed for pain. See discharge instructions for back exercises to help with the pain. Flexeril, 1 tablet three times a day as needed for pain. #12. RX given to the patient. Heat or ice to the area which ever works best for you. Consider physical therapy with PCP if not improving over the next few days. Return to the ED if new or worsening symptoms. Follow up with PCP in 4-6 days if not improving and consider physical therapy.
[2019-10-01] MEDS ORDERED: Ibuprofen 600 MG Tab PO ONE (23:48)
== END 2019-10-02 00:32 | disposition home or self-care (01) ==
LOC: DL.ED 21:42
DX: M54.5 Low back pain (principal); F17.210 Nicotine dependence, cigarettes, uncomplicated
CPT/HCPCS: 81001; 96372; 99283; A9270; J2360

== ENCOUNTER 2020-04-12 20:28 | Emergency (ER) | payer OTHER ==
[2020-04-12 20:46] VITALS: BP 100/41; PULSE 64
--- NOTE | 2020-04-12 21:03 | EDM.PDOC ---
ED HPI GENERAL MEDICAL PROBLEM - General Chief Complaint: ENT Problem Stated Complaint: ER ACHE Time Seen by Provider: 04/12/20 21:03 Source of Information: Reports: Patient, RN, RN Notes Reviewed History Limitations: Reports: No Limitations - History of Present Illness INITIAL COMMENTS - FREE TEXT/NARRATIVE: Patient presents to ER with complaint of right ear pain. Patient states she has frequent ear infections. The pain began about 2 days ago and has progressively gotten worse, and states the ear is draining clear drainage today. Patient rates the pain 5/10. Denies fever chills. Patient states she has followed up with ear nose and throat in the past and was told there was nothing wrong. Patient states she has been using Tylenol and ibuprofen for pain. 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 Musculoskeletal History: Reports: Arthritis, Osteoarthritis Neurological History: Reports: None Psychiatric History: Reports: Anxiety, Depression Endocrine/Metabolic History: Reports: None Hematologic History: Reports: None Immunologic History: Reports: None Oncologic (Cancer) History: Reports: None Dermatologic History: Reports: None - Infectious Disease History Infectious Disease History: Reports: None - Past Surgical History Head Surgeries/Procedures: Reports: None Other Musculoskeletal Surgeries/Procedures:: arm surgery Social & Family History - Family History Family Medical History: Noncontributory - Tobacco Use Smoking Status *Q: Current Some Day Smoker Years of Tobacco use: 10 Packs/Tins Daily: 0.2 - Caffeine Use Caffeine Use: Reports: Coffee - Recreational Drug Use Recreational Drug Use: No - Living Situation & Occupation Living situation: Reports: , with Family Occupation: Employed ED ROS ENT - Review of Systems Review Of Systems: Comprehensive ROS is negative, except as noted in HPI. ED EXAM, ENT - Physical Exam Exam: See Below Exam Limited By: No Limitations General Appearance: Alert, WD/WN, Mild Distress Eye Exam: Bilateral Eye: EOMI, Normal Inspection Ears: Normal External Exam, Normal Canal, Hearing Grossly Normal, TM Bulging (right), TM Dullness (right), TM Erythema (right), TM Fluid (right) Nose: Normal Inspection, Normal Mucousa, No Blood Mouth/Throat: Normal Inspection, Normal Gums, Normal Lips, Normal Oropharynx, Normal Teeth Head: Atraumatic, Normocephalic Neck: Normal Inspection, Supple, Non-Tender, Full Range of Motion Respiratory/Chest: No Respiratory Distress, Lungs Clear, Normal Breath Sounds, No Accessory Muscle Use, Chest Non-Tender Cardiovascular: Normal Peripheral Pulses, Regular Rate, Rhythm, No Edema, No Gallop, No JVD, No Murmur, No Rub GI/Abdominal: Normal Bowel Sounds, Soft, Non-Tender (Female) Exam: Deferred Rectal (Female) Exam: Deferred Back: Normal Inspection, Full Range of Motion Extremities: Normal Inspection, Normal Range of Motion, Non-Tender, No Pedal Edema, Normal Capillary Refill Neurological: Alert, Oriented, CN II-XII Intact, Normal Cognition, Normal Gait, Normal Reflexes, No Motor/Sensory Deficits Psychiatric: Normal Affect, Normal Mood Skin: Warm, Dry, Intact, Normal Color, No Rash Lymphatic: No Adenopathy Course - Vital Signs Last Recorded V/S: Last Vital Signs Temp 96.4 F L 04/12/20 20:40 Pulse 64 04/12/20 20:40 Resp 14 04/12/20 20:40 BP 100/41 L 04/12/20 20:40 Pulse Ox 97 04/12/20 20:40 - Orders/Labs/Meds Meds: Medications Discontinued Medications Generic Name Dose Route Start Last Admin Trade Name Freq PRN Reason Stop Dose Admin Amoxicillin 500 mg 04/12/20 21:11 04/12/20 21:23 Amoxil PO 04/12/20 21:12 500 mg ONETIME ONE Administration Departure - Departure Time of Disposition: 21:12 Disposition: Home, Self-Care 01 Condition: Fair Clinical Impression: Otitis media Qualifiers: Otitis media type: suppurative Chronicity: chronic Laterality: right Suppurative otitis media location: unspecified location Qualified Code(s): H66.3X1 - Other chronic suppurative otitis media, right ear - Discharge Information *PRESCRIPTION DRUG MONITORING PROGRAM REVIEWED*: No *COPY OF PRESCRIPTION DRUG MONITORING REPORT IN PATIENT JUICE: No Instructions: Otitis Media, Adult, [id number] Forms: ED Department Discharge Additional Instructions: Rx: Amoxicillin Drink plenty of water Use heat to the right ear as tolerated Follow up with your primary care facility Sepsis Event Note (ED) - Evaluation Sepsis Screening Result: No Definite Risk - Focused Exam Vital Signs: Vital Signs Temp Pulse Resp BP Pulse Ox 04/12/20 20:40 96.4 F L 64 14 100/41 L 97
[2020-04-12] MEDS ORDERED: Amoxicillin 500 MG Cap PO ONE (21:11)
== END 2020-04-12 21:25 | disposition home or self-care (01) ==
LOC: DL.ED 20:28
DX: H66.3X1 Other chronic suppurative otitis media, right ear (principal); F17.210 Nicotine dependence, cigarettes, uncomplicated
CPT/HCPCS: 99282; A9270; 99283

== ENCOUNTER 2020-04-14 22:38 | Emergency (ER) | payer OTHER ==
[2020-04-14 23:17] VITALS: BP 116/42; PULSE 64
[2020-04-14] MEDS ORDERED: Tetracaine HCl/PF 0.5% 4 ML Bottle EYERT ONE ×2 (23:20→23:21)
[2020-04-14] MEDS ORDERED: Clindamycin HCl 150 MG Cap PO ONE (23:21)
--- NOTE | 2020-04-14 23:26 | EDM.PDOC ---
ED HPI GENERAL MEDICAL PROBLEM - General Chief Complaint: ENT Problem Stated Complaint: EAR ACHE Time Seen by Provider: 04/14/20 23:22 Source of Information: Reports: Patient History Limitations: Reports: No Limitations - History of Present Illness INITIAL COMMENTS - FREE TEXT/NARRATIVE: long h/o ear problem. being Tx with amox but still hurts. Right Ear Pain Score (Numeric/FACES): 8 - Related Data Allergies Allergy/AdvReac Type Severity Reaction Status Date / Time No Known Allergies Allergy Verified 04/14/20 23:19 Home Meds: Home Meds . 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 Musculoskeletal History: Reports: Arthritis, Osteoarthritis Neurological History: Reports: None Psychiatric History: Reports: Anxiety, Depression Endocrine/Metabolic History: Reports: None Hematologic History: Reports: None Immunologic History: Reports: None Oncologic (Cancer) History: Reports: None Dermatologic History: Reports: None - Infectious Disease History Infectious Disease History: Reports: None - Past Surgical History Head Surgeries/Procedures: Reports: None Other Musculoskeletal Surgeries/Procedures:: arm surgery Social & Family History - Family History Family Medical History: Noncontributory - Tobacco Use Smoking Status *Q: Current Every Day Smoker Years of Tobacco use: 10 Packs/Tins Daily: 0.1 - Caffeine Use Caffeine Use: Reports: Coffee - Recreational Drug Use Recreational Drug Use: No - Living Situation & Occupation Living situation: Reports: , with Family Occupation: Employed ED ROS ENT - Review of Systems Review Of Systems: Comprehensive ROS is negative, except as noted in HPI. ED EXAM, ENT - Physical Exam Exam: See Below Exam Limited By: No Limitations General Appearance: Alert, WD/WN, Mild Distress, Other ([place]) Ears: Canal Discharge, Canal Swelling, TM Dullness, Other (right) Nose: Normal Inspection Mouth/Throat: Normal Inspection Head: Atraumatic Neck: Non-Tender, Full Range of Motion Respiratory/Chest: No Respiratory Distress Cardiovascular: Regular Rate, Rhythm GI/Abdominal: Soft, Non-Tender Neurological: Alert, Oriented, Normal Cognition, Normal Gait, No Motor/Sensory Deficits Psychiatric: Flat Affect Skin: Warm, Dry, Normal Color Lymphatic: No Adenopathy Course - Vital Signs Last Recorded V/S: Last Vital Signs Temp 36.4 C 04/14/20 23:14 Pulse 64 04/14/20 23:14 Resp 16 04/14/20 23:14 BP 116/42 L 04/14/20 23:14 Pulse Ox 96 04/14/20 23:14 - Orders/Labs/Meds Orders: Active Orders 24 hr Category Date Time Status Tetracaine HCl/PF [Tetracaine 0.5% Steri-Unit Libby] Med 04/14/20 23:21 Once 1 ml EYERT ASDIRECTED ONE Medication Orders Tetracaine HCl (Tetracaine 0.5% Steri-Unit Libby) 1 ml EYERT ASDIRECTED ONE Stop: 04/14/20 23:22 Meds: Medications Generic Name Dose Route Start Last Admin Trade Name Freq PRN Reason Stop Dose Admin Tetracaine HCl 1 ml 04/14/20 23:21 Tetracaine 0.5% Steri-Unit Libby EYERT 04/14/20 23:22 ASDIRECTED ONE Discontinued Medications Generic Name Dose Route Start Last Admin Trade Name Freq PRN Reason Stop Dose Admin Clindamycin HCl 300 mg 04/14/20 23:21 Cleocin PO 04/14/20 23:22 ONETIME ONE Tetracaine HCl 1 ml 04/14/20 23:20 Tetracaine 0.5% Steri-Unit Libby EYERT 04/14/20 23:21 ASDIRECTED ONE Departure - Departure Time of Disposition: 23:24 Disposition: Home, Self-Care 01 Condition: Good Clinical Impression: Otitis externa Qualifiers: Otitis externa type: diffuse Chronicity: acute Laterality: right Qualified Code(s): H60.311 - Diffuse otitis externa, right ear - Discharge Information Instructions: Otitis Externa, [id number] Additional Instructions: 1) don't sleep flat 2) don't get water into right ear 3) follow up at clinic rx give; clindaycin 300mg qid x 1 week Sepsis Event Note (ED) - Evaluation Sepsis Screening Result: No Definite Risk - Focused Exam Vital Signs: Vital Signs Temp Pulse Resp BP Pulse Ox 04/14/20 23:14 36.4 C 64 16 116/42 L 96 - My Orders Last 24 Hours: My Active Orders 04/14/20 23:21 Tetracaine HCl/PF [Tetracaine 0.5% Steri-Unit Libby] 1 ml EYERT ASDIRECTED ONE - Assessment/Plan Last 24 Hours: My Active Orders 04/14/20 23:21 Tetracaine HCl/PF [Tetracaine 0.5% Steri-Unit Libby] 1 ml EYERT ASDIRECTED ONE
== END 2020-04-14 23:35 | disposition home or self-care (01) ==
LOC: DL.ED 22:38
DX: H60.311 Diffuse otitis externa, right ear (principal); F17.210 Nicotine dependence, cigarettes, uncomplicated
CPT/HCPCS: 99282; A9270; 99283

== ENCOUNTER 2020-04-28 19:39 | Emergency (ER) | payer OTHER ==
[2020-04-28] MEDS ORDERED: Acetaminophen/HYDROcodone 325-10 MG Tab PO ONE (20:23)
[2020-04-28 20:26] VITALS: BP 131/40; PULSE 58
--- NOTE | 2020-04-28 20:27 | EDM.PDOC ---
ED HPI GENERAL MEDICAL PROBLEM - General Chief Complaint: ENT Problem Stated Complaint: EAR PROBLEMS Time Seen by Provider: 04/28/20 20:21 Source of Information: Reports: Patient History Limitations: Reports: No Limitations - History of Present Illness INITIAL COMMENTS - FREE TEXT/NARRATIVE: long h/o right ear problem saw ENT told was TMJ. Right Jaw Pain Score (Numeric/FACES): 8 - Related Data Allergies Allergy/AdvReac Type Severity Reaction Status Date / Time No Known Allergies Allergy Verified 04/28/20 20:18 Home Meds: Home Meds . 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 Musculoskeletal History: Reports: Arthritis, Osteoarthritis Neurological History: Reports: None Psychiatric History: Reports: Anxiety, Depression Endocrine/Metabolic History: Reports: None Hematologic History: Reports: None Immunologic History: Reports: None Oncologic (Cancer) History: Reports: None Dermatologic History: Reports: None - Infectious Disease History Infectious Disease History: Reports: None - Past Surgical History Head Surgeries/Procedures: Reports: None Other Musculoskeletal Surgeries/Procedures:: arm surgery Social & Family History - Family History Family Medical History: Noncontributory - Caffeine Use Caffeine Use: Reports: Coffee - Living Situation & Occupation Living situation: Reports: , with Family Occupation: Employed ED ROS ENT - Review of Systems Review Of Systems: Comprehensive ROS is negative, except as noted in HPI. ED EXAM, ENT - Physical Exam Exam: See Below Exam Limited By: No Limitations General Appearance: Alert, WD/WN, Mild Distress, Moderate Distress, Other (tearful) Ears: Normal Canal, Hearing Grossly Normal, TM Dullness, Other (left TMJ tender on R/P) Mouth/Throat: Normal Inspection Head: Atraumatic Neck: Non-Tender, Full Range of Motion Respiratory/Chest: No Respiratory Distress Cardiovascular: Regular Rate, Rhythm GI/Abdominal: Soft, Non-Tender Neurological: Alert, Oriented, Normal Cognition, Normal Gait, No Motor/Sensory Deficits Psychiatric: Tearful Lymphatic: No Adenopathy Course - Orders/Labs/Meds Meds: Medications Discontinued Medications Generic Name Dose Route Start Last Admin Trade Name Heather PRN Reason Stop Dose Admin Hydrocodone Bitart/Acetaminophen 1 tab 04/28/20 20:23 Caroleen 325-10 Mg PO 04/28/20 20:24 ONETIME ONE Departure - Departure Time of Disposition: 20:25 Disposition: Home, Self-Care 01 Condition: Good Clinical Impression: TMJ arthropathy - Discharge Information Instructions: Temporomandibular Joint Syndrome Additional Instructions: 1) see clinic Thursday for MRI SCAN for left TMJ rx given; vicodin 5/325mg bid prn x 4
== END 2020-04-28 20:32 | disposition home or self-care (01) ==
LOC: DL.ED 19:39
DX: M26.69 Other specified disorders of temporomandibular joint (principal)
CPT/HCPCS: 99283; A9270

== ENCOUNTER 2020-07-20 19:38 | Emergency (ER) | payer MEDICAID, OTHER | END 2020-07-20 19:40 | disposition left against medical advice (07) | LOC: DL.ED 19:38 | DX: Z53.21 Procedure and treatment not carried out due to patient leaving prior to being seen by health care provider (principal) ==

== ENCOUNTER 2020-07-21 18:18 | Emergency (ER) | payer MEDICAID, OTHER ==
[2020-07-21] MEDS ORDERED: Acetaminophen/HYDROcodone 325-10 MG Tab PO ONE (19:16)
[2020-07-21] MEDS ORDERED: predniSONE 20 MG Tab PO ONE (19:16)
--- NOTE | 2020-07-21 19:20 | EDM.PDOC ---
ED HPI GENERAL MEDICAL PROBLEM - General Chief Complaint: ENT Problem Stated Complaint: EAR ACHE Time Seen by Provider: 07/21/20 19:17 Source of Information: Reports: Patient History Limitations: Reports: No Limitations - History of Present Illness INITIAL COMMENTS - FREE TEXT/NARRATIVE: Dx with TMJ taking tegretol not helping. has preferral for specialist in few weeks. - Related Data Allergies Allergy/AdvReac Type Severity Reaction Status Date / Time No Known Allergies Allergy Verified 04/28/20 20:18 Home Meds: Home Meds . 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 Musculoskeletal History: Reports: Arthritis, Osteoarthritis Neurological History: Reports: None Psychiatric History: Reports: Anxiety, Depression Endocrine/Metabolic History: Reports: None Hematologic History: Reports: None Immunologic History: Reports: None Oncologic (Cancer) History: Reports: None Dermatologic History: Reports: None - Infectious Disease History Infectious Disease History: Reports: None - Past Surgical History Head Surgeries/Procedures: Reports: None Other Musculoskeletal Surgeries/Procedures:: arm surgery Social & Family History - Family History Family Medical History: No Pertinent Family History - Caffeine Use Caffeine Use: Reports: Coffee - Living Situation & Occupation Living situation: Reports: , with Family Occupation: Employed ED ROS ENT - Review of Systems Review Of Systems: Comprehensive ROS is negative, except as noted in HPI. ED EXAM, ENT - Physical Exam Exam: See Below Exam Limited By: No Limitations General Appearance: Alert, WD/WN, Mild Distress, Other (crying) Ears: Hearing Grossly Normal Mouth/Throat: Other (right TMJ tneder R/P) Head: Atraumatic Neck: Non-Tender, Full Range of Motion Respiratory/Chest: No Respiratory Distress Cardiovascular: Regular Rate, Rhythm GI/Abdominal: Soft, Non-Tender (Female) Exam: Deferred Rectal (Female) Exam: Deferred Neurological: Alert, Oriented, Normal Cognition, Normal Gait, No Motor/Sensory Deficits Psychiatric: Tearful Skin: Warm, Dry, Normal Color Lymphatic: No Adenopathy Course - Orders/Labs/Meds Meds: Medications Discontinued Medications Generic Name Dose Route Start Last Admin Trade Name Heather PRN Reason Stop Dose Admin Hydrocodone Bitart/Acetaminophen 1 tab 07/21/20 19:16 Sherrill 325-10 Mg PO 07/21/20 19:17 ONETIME ONE Prednisone 20 mg 07/21/20 19:16 Prednisone PO 07/21/20 19:17 ONETIME ONE Departure - Departure Time of Disposition: 19:19 Disposition: Home, Self-Care 01 Condition: Good Clinical Impression: TMJ arthropathy - Discharge Information Instructions: Temporomandibular Joint Syndrome Additional Instructions: 1) follow up at clinic rx given; medrol dospak
[2020-07-21 19:40] VITALS: BP 152/51; PULSE 64
== END 2020-07-21 19:28 | disposition home or self-care (01) ==
LOC: DL.ED 18:18
DX: M26.651 Arthropathy of right temporomandibular joint (principal)
CPT/HCPCS: 99283; A9270; J7512

== ENCOUNTER 2020-12-18 19:18 | Emergency (ER) | payer MEDICAID, OTHER ==
[2020-12-18] MEDS ORDERED: Ondansetron 4 MG Tab.DIS PO ONE (19:19)
[2020-12-18] MEDS ORDERED: Sodium Chloride 0.9% 1,000 ML IV ONE ×2 (19:32→20:29)
[2020-12-18 19:38] VITALS: PULSE 74
[2020-12-18 20:15] LABS: ANION GAP 14.1 mEq/L (7-13); CHLORIDE,CL 97 mmol/L (98-107); SODIUM,NA 135 mmol/L (136-145)
[2020-12-18] MEDS ORDERED: 50% Dextrose in Water 50 ML Syringe IV PRN (20:27)
[2020-12-18] MEDS ORDERED: Glucagon,Human Recombinant 1 MG Vial IM PRN (20:27)
[2020-12-18] MEDS ORDERED: Insulin Regular, Human 100 Units/ML 3 ML Vial IV ONE (20:27)
[2020-12-18] MEDS ORDERED: Ondansetron 4 MG/2 ML SDV IVPUSH ONE (20:42)
[2020-12-18 21:28] LABS: CORONAVIRUS COVID-19 NAA NEGATIVE (NEGATIVE)
[2020-12-18 21:33] VITALS: BP 123/40
[2020-12-18] MEDS ORDERED: Acetaminophen 325 MG Tab PO ONE (22:04)
--- NOTE | 2020-12-18 22:07 | EDM.PDOC ---
ED HPI GENERAL MEDICAL PROBLEM - General Chief Complaint: Diabetic Complaint Stated Complaint: BLOOD SUGAR Time Seen by Provider: 12/18/20 19:35 Source of Information: Reports: Patient History Limitations: Reports: No Limitations - History of Present Illness INITIAL COMMENTS - FREE TEXT/NARRATIVE: ED with multiple complaints. Reports diabetic and blood sugar high. poor appetite past 2-3 days, some vomiting and diarrhea today. Not checking blood sugar. Has not been seen in clinic. Last checked blood sugars usually 200's, Last time in clinic ws 400. - Related Data Allergies Allergy/AdvReac Type Severity Reaction Status Date / Time No Known Allergies Allergy Verified 12/18/20 19:30 Home Meds: Home Meds Alogliptin Benzoate [Alogliptin] 25 mg PO DAILY 12/18/20 [History] Pioglitazone [Actos] 15 mg PO DAILY 12/18/20 [History] Rosuvastatin [Crestor] 10 mg PO BEDTIME 12/18/20 [History] Past Medical History - Past Health History Medical/Surgical History: Denies Medical/Surgical History HEENT History: Reports: Other (See Below) Other HEENT History: otitis externa and mastoiditis. 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 Musculoskeletal History: Reports: Arthritis, Osteoarthritis Neurological History: Reports: None Psychiatric History: Reports: Anxiety, Depression Endocrine/Metabolic History: Reports: Diabetes, Type II Hematologic History: Reports: None Immunologic History: Reports: None Oncologic (Cancer) History: Reports: None Dermatologic History: Reports: None - Infectious Disease History Infectious Disease History: Reports: None - Past Surgical History Head Surgeries/Procedures: Reports: None Other Musculoskeletal Surgeries/Procedures:: arm surgery Social & Family History - Family History Family Medical History: No Pertinent Family History - Tobacco Use Tobacco Use Status *Q: Never Tobacco User Second Hand Smoke Exposure: No - Caffeine Use Caffeine Use: Reports: Coffee - Recreational Drug Use Recreational Drug Use: No - Living Situation & Occupation Living situation: Reports: , with Family Occupation: Employed ED ROS GENERAL - Review of Systems Review Of Systems: See Below Constitutional: Reports: Malaise, Fatigue, Decreased Appetite HEENT: Reports: No Symptoms Respiratory: Reports: No Symptoms Cardiovascular: Reports: No Symptoms Endocrine: Reports: High Glucose GI/Abdominal: Reports: Diarrhea, Decreased Appetite, Nausea, Vomiting : Reports: No Symptoms Musculoskeletal: Reports: No Symptoms Skin: Reports: No Symptoms Neurological: Reports: No Symptoms Psychiatric: Reports: No Symptoms ED EXAM GENERAL NO PERIP PULSE - Physical Exam Exam: See Below Exam Limited By: No Limitations General Appearance: Alert, Mild Distress Eye Exam: Bilateral Eye: EOMI, PERRL Ears: Normal External Exam Nose: Normal Inspection Throat/Mouth: Normal Inspection Head: Atraumatic, Normocephalic Neck: Normal Inspection, Full Range of Motion Respiratory/Chest: No Respiratory Distress Cardiovascular: Normal Peripheral Pulses, Regular Rate, Rhythm GI/Abdominal: Normal Bowel Sounds, Soft, Non-Tender Extremities: Normal Inspection Neurological: Alert, Oriented, Normal Cognition Psychiatric: Normal Affect, Normal Mood Skin Exam: Warm, Dry, Intact Course - Vital Signs Last Recorded V/S: Last Vital Signs Temp 97.4 F 12/18/20 19:32 Pulse 74 12/18/20 19:32 Resp 16 12/18/20 19:32 BP 123/40 L 12/18/20 21:32 Pulse Ox 95 12/18/20 19:32 - Orders/Labs/Meds Labs: Laboratory Tests 12/18/20 12/18/20 12/18/20 Range/Units 19:26 19:41 19:41 WBC 12.5 H (5.0-10.0) 10^3/uL RBC 5.68 H (4.2-5.4) 10^6/uL Hgb 14.2 D (12.0-16.0) g/dL Hct 44.8 (37.0-47.0) % MCV 78.9 L D (80-100) fL MCH 25.0 L (27.0-34.0) pg MCHC 31.7 L (33.0-35.0) g/dL Plt Count 356 (150-450) 10^3/uL Neut % (Auto) 74.5 (42.2-75.2) % Lymph % (Auto) 18.9 L (20.5-50.1) % [place] % (Auto) 4.8 (2-8) % Eos % (Auto) 1.3 (1.0-3.0) % Baso % (Auto) 0.5 (0.0-1.0) % Sodium 135 L (136-145) mmol/L Potassium 4.1 (3.5-5.1) mmol/L Chloride 97 L (98-107) mmol/L Carbon Dioxide 28 (21-32) mmol/L Anion Gap 14.1 H (7-13) mEq/L BUN 10 (7-18) mg/dL Creatinine 0.87 (0.55-1.02) mg/dL Est Cr Clr Drug Dosing 51.89 mL/min Estimated GFR (MDRD) > 60 BUN/Creatinine Ratio 11.5 (No establ ref range) Glucose 496 H* (70-99) mg/dL POC Glucose 522 H* (70-99) mg/dL Lactic Acid (0.4-2.0) mmol/L Calcium 8.7 (8.5-10.1) mg/dL Magnesium 2.1 (1.8-2.4) mg/dL Total Bilirubin 0.4 (0.2-1.0) mg/dL AST 25 (15-37) U/L ALT 38 (14-59) U/L Alkaline Phosphatase 175 H (46-116) U/L Total Protein 7.9 (6.4-8.2) g/dL Albumin 3.6 (3.4-5.0) g/dL Globulin 4.3 Albumin/Globulin Ratio 0.8 Amylase 23 L (25-115) U/L Lipase 112 (73-393) U/L Urine Color (YELLOW) Urine Appearance (CLEAR) Urine pH (5.0-9.0) Ur Specific [place] (1.005-1.030) Urine Protein (NEGATIVE) Urine Glucose (UA) (NEGATIVE) Urine Ketones (NEGATIVE) Urine Occult Blood (NEGATIVE) Urine Nitrite (NEGATIVE) Urine Bilirubin (NEGATIVE) Urine Urobilinogen (0.2-1.0) mg/dL Ur Leukocyte Esterase (NEGATIVE) Ketones Negative Influenza Type A RNA (NEGATIVE) Influenza Type B RNA (NEGATIVE) SARS-CoV-2 RNA ([place]) (NEGATIVE) 12/18/20 12/18/20 12/18/20 Range/Units 19:41 20:24 20:44 WBC (5.0-10.0) 10^3/uL RBC (4.2-5.4) 10^6/uL Hgb (12.0-16.0) g/dL Hct (37.0-47.0) % MCV (80-100) fL MCH (27.0-34.0) pg MCHC (33.0-35.0) g/dL Plt Count (150-450) 10^3/uL Neut % (Auto) (42.2-75.2) % Lymph % (Auto) (20.5-50.1) % [place] % (Auto) (2-8) % Eos % (Auto) (1.0-3.0) % Baso % (Auto) (0.0-1.0) % Sodium (136-145) mmol/L Potassium (3.5-5.1) mmol/L Chloride (98-107) mmol/L Carbon Dioxide (21-32) mmol/L Anion Gap (7-13) mEq/L BUN (7-18) mg/dL Creatinine (0.55-1.02) mg/dL Est Cr Clr Drug Dosing mL/min Estimated GFR (MDRD) BUN/Creatinine Ratio (No establ ref range) Glucose (70-99) mg/dL POC Glucose (70-99) mg/dL Lactic Acid 1.3 (0.4-2.0) mmol/L Calcium (8.5-10.1) mg/dL Magnesium (1.8-2.4) mg/dL Total Bilirubin (0.2-1.0) mg/dL AST (15-37) U/L ALT (14-59) U/L Alkaline Phosphatase (46-116) U/L Total Protein (6.4-8.2) g/dL Albumin (3.4-5.0) g/dL Globulin Albumin/Globulin Ratio Amylase (25-115) U/L Lipase (73-393) U/L Urine Color Yellow (YELLOW) Urine Appearance Clear (CLEAR) Urine pH 5.5 (5.0-9.0) Ur Specific [place] 1.015 (1.005-1.030) Urine Protein Negative (NEGATIVE) Urine Glucose (UA) 500 H (NEGATIVE) Urine Ketones Negative (NEGATIVE) Urine Occult Blood Negative (NEGATIVE) Urine Nitrite Negative (NEGATIVE) Urine Bilirubin Negative (NEGATIVE) Urine Urobilinogen 0.2 (0.2-1.0) mg/dL Ur Leukocyte Esterase Negative (NEGATIVE) Ketones Influenza Type A RNA Negative (NEGATIVE) Influenza Type B RNA Negative (NEGATIVE) SARS-CoV-2 RNA ([place]) Negative (NEGATIVE) 12/18/20 Range/Units 21:37 WBC (5.0-10.0) 10^3/uL RBC (4.2-5.4) 10^6/uL Hgb (12.0-16.0) g/dL Hct (37.0-47.0) % MCV (80-100) fL MCH (27.0-34.0) pg MCHC (33.0-35.0) g/dL Plt Count (150-450) 10^3/uL Neut % (Auto) (42.2-75.2) % Lymph % (Auto) (20.5-50.1) % [place] % (Auto) (2-8) % Eos % (Auto) (1.0-3.0) % Baso % (Auto) (0.0-1.0) % Sodium (136-145) mmol/L Potassium (3.5-5.1) mmol/L Chloride (98-107) mmol/L Carbon Dioxide (21-32) mmol/L Anion Gap (7-13) mEq/L BUN (7-18) mg/dL Creatinine (0.55-1.02) mg/dL Est Cr Clr Drug Dosing mL/min Estimated GFR (MDRD) BUN/Creatinine Ratio (No establ ref range) Glucose (70-99) mg/dL POC Glucose 391 H (70-99) mg/dL Lactic Acid (0.4-2.0) mmol/L Calcium (8.5-10.1) mg/dL Magnesium (1.8-2.4) mg/dL Total Bilirubin (0.2-1.0) mg/dL AST (15-37) U/L ALT (14-59) U/L Alkaline Phosphatase (46-116) U/L Total Protein (6.4-8.2) g/dL Albumin (3.4-5.0) g/dL Globulin Albumin/Globulin Ratio Amylase (25-115) U/L Lipase (73-393) U/L Urine Color (YELLOW) Urine Appearance (CLEAR) Urine pH (5.0-9.0) Ur Specific [place] (1.005-1.030) Urine Protein (NEGATIVE) Urine Glucose (UA) (NEGATIVE) Urine Ketones (NEGATIVE) Urine Occult Blood (NEGATIVE) Urine Nitrite (NEGATIVE) Urine Bilirubin (NEGATIVE) Urine Urobilinogen (0.2-1.0) mg/dL Ur Leukocyte Esterase (NEGATIVE) Ketones Influenza Type A RNA (NEGATIVE) Influenza Type B RNA (NEGATIVE) SARS-CoV-2 RNA ([place]) (NEGATIVE) Meds: Medications Discontinued Medications Generic Name Dose Route Start Last Admin Trade Name Freq PRN Reason Stop Dose Admin Acetaminophen 650 mg 12/18/20 22:04 12/18/20 22:16 Acetaminophen 325 Mg Tab PO 12/18/20 22:05 650 mg NOW ONE Administration Dextrose/Water 50 ml 12/18/20 20:27 50% Dextrose In Water 50 Ml Syringe IV Q15M PRN Hypoglycemia Glucagon 1 mg 12/18/20 20:27 Glucagon,Human Recombinant 1 Mg Vial IM Q15M PRN Hypoglycemia Sodium Chloride 1,000 mls @ 999 mls/hr 12/18/20 19:32 12/18/20 19:57 Normal Saline IV 12/18/20 20:32 999 mls/hr .BOLUS ONE Administration Sodium Chloride 1,000 mls @ 500 mls/hr 12/18/20 20:29 12/18/20 20:50 Normal Saline IV 12/18/20 22:28 500 mls/hr .BOLUS ONE Administration Insulin Human Regular 5 unit 12/18/20 20:27 12/18/20 20:50 Insulin Regular, Human 100 Units/Ml 3 Ml Vial IV 12/18/20 20:28 5 units ONETIME ONE Administration Ondansetron HCl 4 mg 12/18/20 20:42 12/18/20 20:50 Ondansetron 4 Mg/2 Ml Sdv IVPUSH 12/18/20 20:43 4 mg ONETIME ONE Administration Ondansetron HCl Confirm 12/18/20 22:11 Ondansetron 4 Mg Tab.Dis Administered 12/18/20 22:12 Dose 12 mg .ROUTE .STK-MED ONE Departure - Departure Time of Disposition: 22:05 Disposition: Home, Self-Care 01 Condition: Good Clinical Impression: Hyperglycemia, Nausea - Discharge Information *PRESCRIPTION DRUG MONITORING PROGRAM REVIEWED*: No *COPY OF PRESCRIPTION DRUG MONITORING REPORT IN PATIENT JUICE: No Instructions: Hyperglycemia, [id number] Referrals: PCP,None [Primary Care Provider] - Forms: ED Department Discharge Additional Instructions: monitor blood sugar adhere to diabetic diet avoid sugary food and pop that is not diet clinic recheck tomorrow zofran 4mg ODT one every 4 hours as needed for nausea Sepsis Event Note (ED) - Evaluation Sepsis Screening Result: No Definite Risk - Focused Exam Vital Signs: Vital Signs Temp Pulse Resp BP Pulse Ox 12/18/20 21:32 123/40 L 12/18/20 20:00 114/42 L 12/18/20 19:32 97.4 F 74 16 88/75 L 95
[2020-12-18] MEDS ORDERED: Ondansetron 4 MG Tab.DIS ONE (22:11)
== END 2020-12-18 22:20 | disposition home or self-care (01) ==
LOC: DL.ED 19:18
DX: E11.65 Type 2 diabetes mellitus with hyperglycemia (principal); R11.2 Nausea with vomiting, unspecified; Z20.822 Contact with and (suspected) exposure to COVID-19; Z79.899 Other long term (current) drug therapy
CPT/HCPCS: 0240U; 36415; 80053; 81003; 82009; 82150; 82947; 83605; 83690; 83735; 85025; 96374; 99283; 99284-25; A9270-GY; J1815-GY; J2405; J7030

== ENCOUNTER 2021-01-02 21:16 | Emergency (ER) | payer MEDICAID ==
[2021-01-02] MEDS ORDERED: Sodium Chloride 0.9% 1,000 ML IV ONE (21:40)
[2021-01-02 21:45] VITALS: BP 137/49; PULSE 60
--- NOTE | 2021-01-02 21:45 | EDM.PDOC ---
ED HPI GENERAL MEDICAL PROBLEM - General Chief Complaint: Diabetic Complaint Stated Complaint: SICK / WOOZIE Time Seen by Provider: 01/02/21 21:30 Source of Information: Reports: Patient History Limitations: Reports: No Limitations - History of Present Illness INITIAL COMMENTS - FREE TEXT/NARRATIVE: This 60 yo female patient reports to the ED due to feeling week and dizzy for t he past 3 days. The patient reports she has been very thirsty this week and has had intermittent nausea. The patient reports she has not attempted to get into the clinic with her symptoms. The patient reports her symptoms did not get any worse tonight. The patient reports she has been eating and drinking normally. Onset Date: 12/30/20 Duration: Constant Location: Reports: Generalized Quality: Reports: Other Severity: Moderate Improves with: Reports: None Worsens with: Reports: None Associated Symptoms: Reports: Nausea/Vomiting, Weakness, Other (increased somnulende) - Related Data Allergies Allergy/AdvReac Type Severity Reaction Status Date / Time No Known Allergies Allergy Verified 01/02/21 21:35 Home Meds: Home Meds Alogliptin Benzoate [Alogliptin] 25 mg PO DAILY 12/18/20 [History] Pioglitazone [Actos] 15 mg PO DAILY 12/18/20 [History] Rosuvastatin [Crestor] 10 mg PO BEDTIME 12/18/20 [History] Past Medical History - Past Health History Medical/Surgical History: Denies Medical/Surgical History HEENT History: Reports: Other (See Below) Other HEENT History: otitis externa and mastoiditis. 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 Musculoskeletal History: Reports: Arthritis, Osteoarthritis Neurological History: Reports: None Psychiatric History: Reports: Anxiety, Depression Endocrine/Metabolic History: Reports: Diabetes, Type II Hematologic History: Reports: None Immunologic History: Reports: None Oncologic (Cancer) History: Reports: None Dermatologic History: Reports: None - Infectious Disease History Infectious Disease History: Reports: None - Past Surgical History Head Surgeries/Procedures: Reports: None Other Musculoskeletal Surgeries/Procedures:: arm surgery Social & Family History - Family History Family Medical History: No Pertinent Family History - Caffeine Use Caffeine Use: Reports: Coffee - Living Situation & Occupation Living situation: Reports: , with Family Occupation: Employed ED ROS GENERAL - Review of Systems Review Of Systems: Comprehensive ROS is negative, except as noted in HPI. ED EXAM GENERAL NO PERIP PULSE - Physical Exam Exam: See Below Exam Limited By: No Limitations General Appearance: Alert, WD/WN, No Apparent Distress Eye Exam: Bilateral Eye: EOMI, Normal Inspection, PERRL Ears: Normal External Exam, Hearing Grossly Normal Nose: Normal Inspection, Normal Mucosa, No Blood Throat/Mouth: Normal Inspection, Normal Lips, Normal Teeth, Normal Gums, Normal Oropharynx, Normal Voice, No Airway Compromise Head: Atraumatic, Normocephalic Neck: Normal Inspection, Supple, Non-Tender, Full Range of Motion Respiratory/Chest: No Respiratory Distress, Lungs Clear, Normal Breath Sounds, No Accessory Muscle Use, Chest Non-Tender Cardiovascular: Normal Peripheral Pulses, Regular Rate, Rhythm, No Edema, No Gallop, No JVD, No Murmur, No Rub GI/Abdominal: Normal Bowel Sounds, Soft, Non-Tender, No Organomegaly, No Distention, No Abnormal Bruit, No Mass (Female) Exam: Deferred Rectal (Female) Exam: Deferred Back Exam: Normal Inspection, Full Range of Motion, NT Extremities: Normal Inspection, Normal Range of Motion, Non-Tender, Normal Capillary Refill, No Pedal Edema Neurological: Alert, Oriented, CN II-XII Intact, Normal Cognition, Normal Gait, Normal Reflexes, No Motor/Sensory Deficits Psychiatric: Normal Affect, Normal Mood Skin Exam: Warm, Dry, Intact, Normal Color, No Rash Lymphatic: No Adenopathy #1 Interpretation EKG Date: 01/02/21 Time: 22:05 Rhythm: NSR Rate (Beats/Min): 58 [place]: Normal P-Wave: Present QRS: Normal ST-T: Normal QT: Normal Comparison: No Change Course - Vital Signs Last Recorded V/S: Last Vital Signs Temp 36.3 C 01/02/21 21:36 Pulse 60 01/02/21 21:36 Resp 17 01/02/21 21:36 BP 137/49 L 01/02/21 21:36 Pulse Ox 93 L 01/02/21 21:36 - Orders/Labs/Meds Orders: Active Orders 24 hr Category Date Time Status EKG Documentation Completion [RC] STAT Care 01/02/21 21:31 Active CULTURE BLOOD [BC] Stat Lab 01/02/21 21:56 Received Dextrose 50% in Water Med 01/02/21 22:42 Active 50 ml IV Q15M PRN Glucagon,Human Recombinant [GlucaGen] Med 01/02/21 22:42 Active 1 mg IM Q15M PRN Medication Orders Dextrose/Water (50% Dextrose In Water 50 Ml Syringe) 50 ml IV Q15M PRN PRN Reason: Hypoglycemia Glucagon (Glucagon,Human Recombinant 1 Mg Vial) 1 mg IM Q15M PRN PRN Reason: Hypoglycemia Labs: Laboratory Tests 01/02/21 01/02/21 01/02/21 Range/Units 21:33 21:50 21:56 WBC 9.6 (5.0-10.0) 10^3/uL RBC 5.20 (4.2-5.4) 10^6/uL Hgb 13.0 (12.0-16.0) g/dL Hct 42.0 (37.0-47.0) % MCV 80.8 (80-100) fL MCH 25.0 L (27.0-34.0) pg MCHC 31.0 L (33.0-35.0) g/dL Plt Count 318 (150-450) 10^3/uL Neut % (Auto) 66.2 (42.2-75.2) % Lymph % (Auto) 25.2 (20.5-50.1) % [place] % (Auto) 5.4 (2-8) % Eos % (Auto) 2.7 (1.0-3.0) % Baso % (Auto) 0.5 (0.0-1.0) % Sodium (136-145) mmol/L Potassium (3.5-5.1) mmol/L Chloride (98-107) mmol/L Carbon Dioxide (21-32) mmol/L Anion Gap (7-13) mEq/L BUN (7-18) mg/dL Creatinine (0.55-1.02) mg/dL Est Cr Clr Drug Dosing mL/min Estimated GFR (MDRD) BUN/Creatinine Ratio (No establ ref range) Glucose (70-99) mg/dL POC Glucose 499 H* (70-99) mg/dL Lactic Acid (0.4-2.0) mmol/L Calcium (8.5-10.1) mg/dL Total Bilirubin (0.2-1.0) mg/dL AST (15-37) U/L ALT (14-59) U/L Alkaline Phosphatase (46-116) U/L Troponin I (0.000-0.056) ng/mL Total Protein (6.4-8.2) g/dL Albumin (3.4-5.0) g/dL Globulin Albumin/Globulin Ratio Urine Color (YELLOW) Urine Appearance (CLEAR) Urine pH (5.0-9.0) Ur Specific [place] (1.005-1.030) Urine Protein (NEGATIVE) Urine Glucose (UA) (NEGATIVE) Urine Ketones (NEGATIVE) Urine Occult Blood (NEGATIVE) Urine Nitrite (NEGATIVE) Urine Bilirubin (NEGATIVE) Urine Urobilinogen (0.2-1.0) mg/dL Ur Leukocyte Esterase (NEGATIVE) Ketones Influenza Type A RNA Negative (NEGATIVE) Influenza Type B RNA Negative (NEGATIVE) SARS-CoV-2 RNA ([place]) Negative (NEGATIVE) 01/02/21 01/02/21 01/02/21 Range/Units 21:56 21:56 21:56 WBC (5.0-10.0) 10^3/uL RBC (4.2-5.4) 10^6/uL Hgb (12.0-16.0) g/dL Hct (37.0-47.0) % MCV (80-100) fL MCH (27.0-34.0) pg MCHC (33.0-35.0) g/dL Plt Count (150-450) 10^3/uL Neut % (Auto) (42.2-75.2) % Lymph % (Auto) (20.5-50.1) % [place] % (Auto) (2-8) % Eos % (Auto) (1.0-3.0) % Baso % (Auto) (0.0-1.0) % Sodium 136 (136-145) mmol/L Potassium 4.0 (3.5-5.1) mmol/L Chloride 98 (98-107) mmol/L Carbon Dioxide 27 (21-32) mmol/L Anion Gap 15.0 H (7-13) mEq/L BUN 10 (7-18) mg/dL Creatinine 0.84 (0.55-1.02) mg/dL Est Cr Clr Drug Dosing 56.33 mL/min Estimated GFR (MDRD) > 60 BUN/Creatinine Ratio 11.9 (No establ ref range) Glucose 481 H* (70-99) mg/dL POC Glucose (70-99) mg/dL Lactic Acid 1.3 (0.4-2.0) mmol/L Calcium 8.7 (8.5-10.1) mg/dL Total Bilirubin 0.4 (0.2-1.0) mg/dL AST 44 H (15-37) U/L ALT 37 (14-59) U/L Alkaline Phosphatase 174 H (46-116) U/L Troponin I < 0.017 (0.000-0.056) ng/mL Total Protein 7.7 (6.4-8.2) g/dL Albumin 3.5 (3.4-5.0) g/dL Globulin 4.2 Albumin/Globulin Ratio 0.8 Urine Color (YELLOW) Urine Appearance (CLEAR) Urine pH (5.0-9.0) Ur Specific [place] (1.005-1.030) Urine Protein (NEGATIVE) Urine Glucose (UA) (NEGATIVE) Urine Ketones (NEGATIVE) Urine Occult Blood (NEGATIVE) Urine Nitrite (NEGATIVE) Urine Bilirubin (NEGATIVE) Urine Urobilinogen (0.2-1.0) mg/dL Ur Leukocyte Esterase (NEGATIVE) Ketones Negative Influenza Type A RNA (NEGATIVE) Influenza Type B RNA (NEGATIVE) SARS-CoV-2 RNA ([place]) (NEGATIVE) 01/02/21 Range/Units 22:47 WBC (5.0-10.0) 10^3/uL RBC (4.2-5.4) 10^6/uL Hgb (12.0-16.0) g/dL Hct (37.0-47.0) % MCV (80-100) fL MCH (27.0-34.0) pg MCHC (33.0-35.0) g/dL Plt Count (150-450) 10^3/uL Neut % (Auto) (42.2-75.2) % Lymph % (Auto) (20.5-50.1) % [place] % (Auto) (2-8) % Eos % (Auto) (1.0-3.0) % Baso % (Auto) (0.0-1.0) % Sodium (136-145) mmol/L Potassium (3.5-5.1) mmol/L Chloride (98-107) mmol/L Carbon Dioxide (21-32) mmol/L Anion Gap (7-13) mEq/L BUN (7-18) mg/dL Creatinine (0.55-1.02) mg/dL Est Cr Clr Drug Dosing mL/min Estimated GFR (MDRD) BUN/Creatinine Ratio (No establ ref range) Glucose (70-99) mg/dL POC Glucose (70-99) mg/dL Lactic Acid (0.4-2.0) mmol/L Calcium (8.5-10.1) mg/dL Total Bilirubin (0.2-1.0) mg/dL AST (15-37) U/L ALT (14-59) U/L Alkaline Phosphatase (46-116) U/L Troponin I (0.000-0.056) ng/mL Total Protein (6.4-8.2) g/dL Albumin (3.4-5.0) g/dL Globulin Albumin/Globulin Ratio Urine Color Yellow (YELLOW) Urine Appearance Clear (CLEAR) Urine pH 5.5 (5.0-9.0) Ur Specific [place] 1.015 (1.005-1.030) Urine Protein Negative (NEGATIVE) Urine Glucose (UA) >=1000 H (NEGATIVE) Urine Ketones Negative (NEGATIVE) Urine Occult Blood Negative (NEGATIVE) Urine Nitrite Negative (NEGATIVE) Urine Bilirubin Negative (NEGATIVE) Urine Urobilinogen 0.2 (0.2-1.0) mg/dL Ur Leukocyte Esterase Negative (NEGATIVE) Ketones Influenza Type A RNA (NEGATIVE) Influenza Type B RNA (NEGATIVE) SARS-CoV-2 RNA ([place]) (NEGATIVE) Meds: Medications Generic Name Dose Route Start Last Admin Trade Name Freq PRN Reason Stop Dose Admin Dextrose/Water 50 ml 01/02/21 22:42 50% Dextrose In Water 50 Ml Syringe IV Q15M PRN Hypoglycemia Glucagon 1 mg 01/02/21 22:42 Glucagon,Human Recombinant 1 Mg Vial IM Q15M PRN Hypoglycemia Discontinued Medications Generic Name Dose Route Start Last Admin Trade Name Freq PRN Reason Stop Dose Admin Sodium Chloride 1,000 mls @ 999 mls/hr 01/02/21 21:40 01/02/21 22:01 Normal Saline IV 01/02/21 22:40 999 mls/hr .BOLUS ONE Administration Insulin Human Regular 4 unit 01/02/21 22:42 01/02/21 23:01 Insulin Regular, Human 100 Units/Ml 3 Ml Vial IV 01/02/21 22:43 4 units ONETIME ONE Administration Departure - Departure Time of Disposition: 00:01 Disposition: Home, Self-Care 01 Condition: Fair Clinical Impression: Hyperglycemia - Discharge Information *PRESCRIPTION DRUG MONITORING PROGRAM REVIEWED*: Not Applicable *COPY OF PRESCRIPTION DRUG MONITORING REPORT IN PATIENT JUICE: Not Applicable Instructions: Type 2 Diabetes Mellitus, Diagnosis, Adult, [id number] Forms: ED Department Discharge Care Plan Goals: The patient was advised of the examination and lab results during the visit. The patient was given IV fluids and IV insulin during the visit. The patient was encouraged to follow-up with her primary care facility as soon as possible for further evaluation and a medication change. The patient should stick to a diabetic diet. If the patient has any additional symptoms or concerns, the patient should either return to the emergency department or visit her primary care facility. Sepsis Event Note (ED) - Focused Exam Vital Signs: Vital Signs Temp Pulse Resp BP Pulse Ox 01/02/21 21:36 36.3 C 60 17 137/49 L 93 L - My Orders Last 24 Hours: My Active Orders 01/02/21 21:31 EKG Documentation Completion [RC] STAT 01/02/21 21:56 CULTURE BLOOD [BC] Stat 01/02/21 22:42 Dextrose 50% in Water 50 ml IV Q15M PRN Glucagon,Human Recombinant [GlucaGen] 1 mg IM Q15M PRN - Assessment/Plan Last 24 Hours: My Active Orders 01/02/21 21:31 EKG Documentation Completion [RC] STAT 01/02/21 21:56 CULTURE BLOOD [BC] Stat 01/02/21 22:42 Dextrose 50% in Water 50 ml IV Q15M PRN Glucagon,Human Recombinant [GlucaGen] 1 mg IM Q15M PRN
[2021-01-02 22:37] LABS: CHLORIDE,CL 98 mmol/L (98-107); SODIUM,NA 136 mmol/L (136-145)
[2021-01-02] MEDS ORDERED: Insulin Regular, Human 100 Units/ML 3 ML Vial IV ONE (22:42)
[2021-01-02] MEDS ORDERED: 50% Dextrose in Water 50 ML Syringe IV PRN (22:42)
[2021-01-02] MEDS ORDERED: Glucagon,Human Recombinant 1 MG Vial IM PRN (22:42)
[2021-01-02 22:53] LABS: CORONAVIRUS COVID-19 NAA NEGATIVE (NEGATIVE)
== END 2021-01-03 00:15 | disposition home or self-care (01) ==
LOC: DL.ED 21:16
DX: E11.65 Type 2 diabetes mellitus with hyperglycemia (principal); Z20.822 Contact with and (suspected) exposure to COVID-19; Z79.84 Long term (current) use of oral hypoglycemic drugs; Z79.899 Other long term (current) drug therapy
CPT/HCPCS: 0240U; 36415; 80053; 81003; 82009; 82947; 83605; 84484; 85025; 87040; 93005; 99284; J1815; J7030; 93010

== ENCOUNTER 2021-03-15 23:38 | Emergency (ER) | payer MEDICAID ==
[2021-03-16 00:57] VITALS: BP 99/53; PULSE 58
[2021-03-16] MEDS ORDERED: Ketorolac 30 MG/ML SDV IM ONE (01:43)
--- NOTE | 2021-03-16 01:43 | EDM.PDOC ---
ED HPI GENERAL MEDICAL PROBLEM - General Chief Complaint: ENT Problem Stated Complaint: PAIN IN RIGHT SIDE OF FACE Time Seen by Provider: 03/16/21 01:10 Source of Information: Reports: Patient, Old Records, RN, RN Notes Reviewed History Limitations: Reports: No Limitations - History of Present Illness INITIAL COMMENTS - FREE TEXT/NARRATIVE: Chayo is a 60 y/o female who presents to the ED via personal vehicle with complaints of right preauricular pain. The patient reports her symptoms began yesterday and have progressed in severity over that time. She characterizes her pain as a tooth ache, but also feels it may originate in her ear. She denies experiencing similar pain. She characterizes the pain as sharp and notes it radiates into her caodaism. She has taken one dose of ibuprofen and one dose of acetaminophen with no alleviation in pain. She denies recent illness, fever, shaking chills, vision changes, sinus congestion, ear pressure/drainage, dysphagia, sore throat, cough, palpitations, nausea, vomiting, or diarrhea. 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: Acetaminophen, Cold Therapy, NSAIDS, Other (see below) Other Treatments HOT WORT SETTLER: per patient report Right Lower Tooth/Teeth Pain Score (Numeric/FACES): 10 - Related Data Allergies Allergy/AdvReac Type Severity Reaction Status Date / Time No Known Allergies Allergy Verified 03/16/21 00:57 Home Meds: Home Meds Alogliptin Benzoate [Alogliptin] 25 mg PO DAILY 12/18/20 [History] Pioglitazone [Actos] 15 mg PO DAILY 12/18/20 [History] Rosuvastatin [Crestor] 10 mg PO BEDTIME 12/18/20 [History] Past Medical History - Past Health History Medical/Surgical History: Denies Medical/Surgical History HEENT History: Reports: Other (See Below) Other HEENT History: otitis externa and mastoiditis. 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 Musculoskeletal History: Reports: Arthritis, Osteoarthritis Neurological History: Reports: None Psychiatric History: Reports: Anxiety, Depression Endocrine/Metabolic History: Reports: Diabetes, Type II Hematologic History: Reports: None Immunologic History: Reports: None Oncologic (Cancer) History: Reports: None Dermatologic History: Reports: None - Infectious Disease History Infectious Disease History: Reports: None - Past Surgical History Head Surgeries/Procedures: Reports: None Other Musculoskeletal Surgeries/Procedures:: arm surgery Social & Family History - Family History Family Medical History: No Pertinent Family History - Tobacco Use Tobacco Use Status *Q: Current Every Day Tobacco User Years of Tobacco use: 5 Packs/Tins Daily: 0.1 - Caffeine Use Caffeine Use: Reports: Coffee - Recreational Drug Use Recreational Drug Use: No - Living Situation & Occupation Living situation: Reports: , with Family Occupation: Employed ED ROS ENT - Review of Systems Review Of Systems: Comprehensive ROS is negative, except as noted in HPI. ED EXAM, ENT - Physical Exam Exam: See Below Exam Limited By: No Limitations General Appearance: Alert, No Apparent Distress, Thin Eye Exam: Bilateral Eye: EOMI, Normal Inspection, PERRL (3mm) Ears: Normal External Exam, Hearing Grossly Normal, TM Dullness, TM Erythema, TM Fluid. No: TM Bulging, TM Blood, TM Perforation Nose: Normal Inspection, Normal Mucousa, No Blood Mouth/Throat: Normal Inspection, Normal Gums, Normal Lips, Normal Oropharynx, Dental Tenderness (To right upper teeth). No: Drooling, Hoarse Voice, Muffled Voice, Pharyngeal Erythema, Throat Pain, Throat Swelling, Tonsillar Erythema, Tonsillar Exudates, Tonsillar Swelling Head: Atraumatic, Normocephalic. No: Facial Swelling, Facial Tenderness, Sinus Tenderness Neck: Normal Inspection, Supple, Non-Tender, Full Range of Motion. No: Lymphadenopathy (L), Lymphadenopathy (R) Respiratory/Chest: No Respiratory Distress, Lungs Clear, Normal Breath Sounds, No Accessory Muscle Use, Chest Non-Tender Cardiovascular: Normal Peripheral Pulses, Regular Rate, Rhythm, No Edema, No Gallop, No JVD, No Murmur, No Rub GI/Abdominal: Normal Bowel Sounds, Soft, Non-Tender, No Distention, No Abnormal Bruit, No Mass, Pelvis Stable (Female) Exam: Deferred Rectal (Female) Exam: Deferred Back: Normal Inspection, Full Range of Motion Extremities: Normal Inspection, Normal Range of Motion, Non-Tender, No Pedal Edema, Normal Capillary Refill Neurological: Alert, Oriented, CN II-XII Intact, Normal Cognition, Normal Gait, No Motor/Sensory Deficits Psychiatric: Normal Affect, Normal Mood Skin: Warm, Dry, Intact, Normal Color, No Rash. No: Cyanosis, Jaundice, Mottled, Pallor Course - Vital Signs Last Recorded V/S: Last Vital Signs Temp 97.3 F 03/16/21 00:40 Pulse 58 L 03/16/21 00:40 Resp 17 03/16/21 00:40 BP 99/53 L 03/16/21 00:40 Pulse Ox 97 03/16/21 00:40 - Orders/Labs/Meds Meds: Medications Discontinued Medications Generic Name Dose Route Start Last Admin Trade Name Heather PRN Reason Stop Dose Admin Ketorolac Tromethamine 60 mg 03/16/21 01:43 03/16/21 01:51 Ketorolac 30 Mg/Ml Sdv IM 03/16/21 01:44 60 mg ONETIME ONE Administration - Re-Assessments/Exams Free Text/Narrative Re-Assessment/Exam: 03/16/21 Ketorolac 60mg IM administered for tooth pain. No evidence for need for antibiotics given physical assessment. Findings of examination reviewed with patient. Patient instructed to follow up with dentist for dental pain. Discussed supportive cares as well as red flag signs and symptoms which would warrant reevaluation. Patient verbalized understanding and agreement with the plan of care. Departure - Departure Time of Disposition: 01:50 Disposition: Home, Self-Care 01 Condition: Good Clinical Impression: Perforation of right tympanic membrane, Right ear pain, Acute pain of mouth - Discharge Information *PRESCRIPTION DRUG MONITORING PROGRAM REVIEWED*: Not Applicable *COPY OF PRESCRIPTION DRUG MONITORING REPORT IN PATIENT JUICE: Not Applicable Instructions: Tympanic Membrane Perforation-SportsMed Referrals: PCP,None [Primary Care Provider] - Forms: ED Department Discharge Additional Instructions: 1.) Follow up with primary care provider regarding today's visit. 2.) Follow up with dentist early this coming week regarding today's visit. 3.) You may take acetaminophen 1000mg every six hours, as pain persists. Do not take NSAIDs (such as ibuprofen) or aspirin for 24 hours following Toradol administration. Sepsis Event Note (ED) - Evaluation Sepsis Screening Result: No Definite Risk
== END 2021-03-16 02:10 | disposition home or self-care (01) ==
LOC: DL.ED 23:38
DX: K13.79 Other lesions of oral mucosa (principal); H72.91 Unspecified perforation of tympanic membrane, right ear; E11.9 Type 2 diabetes mellitus without complications; M19.90 Unspecified osteoarthritis, unspecified site; Z72.0 Tobacco use; Z79.899 Other long term (current) drug therapy
CPT/HCPCS: 96372; 99282; 99283; J1885

== ENCOUNTER 2021-04-02 18:55 | Emergency (ER) | payer MEDICAID ==
[2021-04-02 19:11] VITALS: BP 120/42; PULSE 58
[2021-04-02] MEDS ORDERED: traMADol 50 MG Tab PO ONE (19:34)
--- NOTE | 2021-04-02 19:45 | EDM.PDOC ---
ED HPI GENERAL MEDICAL PROBLEM - General Chief Complaint: ENT Problem Stated Complaint: BAD EAR ACHE Time Seen by Provider: 04/02/21 19:20 Source of Information: Reports: Patient, RN, RN Notes Reviewed History Limitations: Reports: No Limitations - History of Present Illness INITIAL COMMENTS - FREE TEXT/NARRATIVE: Chayo is a 60 y/o female who presents to the ED via personal vehicle with complaints of right ear and jaw pain. The patient reports her pain began three days ago and has waxed and waned in severity over that time. She states the pain was the worst last evening and noted she slept upright in her recliner at home. The patient reports a history of TMJ, and has been instructed to wear dentures, but has not been to the dentist in some time. She notes drainage to the right ear, for which she started taking an old prescription of otic Ciprodex. She has also taken multiple doses of acetaminophen and ibuprofen which has offered her little to no alleviation of symptoms. She denies fever, shaking chills, vision changes, headache, sinus pressure/pain, cough, sore throat, cough, or shortness of breath. Right Ear Pain Score (Numeric/FACES): 10 - Related Data Allergies Allergy/AdvReac Type Severity Reaction Status Date / Time No Known Allergies Allergy Verified 04/02/21 19:08 Home Meds: Home Meds Alogliptin Benzoate [Alogliptin] 25 mg PO DAILY 12/18/20 [History] Pioglitazone [Actos] 15 mg PO DAILY 12/18/20 [History] Rosuvastatin [Crestor] 10 mg PO BEDTIME 12/18/20 [History] Past Medical History - Past Health History Medical/Surgical History: Denies Medical/Surgical History HEENT History: Reports: Other (See Below) Other HEENT History: otitis externa and mastoiditis. 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 Musculoskeletal History: Reports: Arthritis, Osteoarthritis Neurological History: Reports: None Psychiatric History: Reports: Anxiety, Depression Endocrine/Metabolic History: Reports: Diabetes, Type II Hematologic History: Reports: None Immunologic History: Reports: None Oncologic (Cancer) History: Reports: None Dermatologic History: Reports: None - Infectious Disease History Infectious Disease History: Reports: None - Past Surgical History Head Surgeries/Procedures: Reports: None Other Musculoskeletal Surgeries/Procedures:: arm surgery Social & Family History - Family History Family Medical History: No Pertinent Family History - Tobacco Use Tobacco Use Status *Q: Current Some Day Tobacco User Years of Tobacco use: 40 Packs/Tins Daily: 0.1 - Caffeine Use Caffeine Use: Reports: Coffee, Tea - Recreational Drug Use Recreational Drug Use: No - Living Situation & Occupation Living situation: Reports: , with Family Occupation: Employed ED ROS ENT - Review of Systems Review Of Systems: Comprehensive ROS is negative, except as noted in HPI. ED EXAM, ENT - Physical Exam Exam: See Below Exam Limited By: No Limitations General Appearance: Alert, No Apparent Distress, Obese Eye Exam: Bilateral Eye: EOMI, Normal Inspection, PERRL (2mm) Ears: Normal External Exam, Normal Canal, Hearing Grossly Normal, Normal TMs. No: Mastoid Swelling, Mastoid Tenderness, TM Bulging, TM Dullness, TM Erythema, TM Blood, TM Fluid, TM Perforation, TM Vesicles, TM Obscured by Cerumen Nose: Normal Inspection, Normal Mucousa, No Blood Mouth/Throat: Normal Gums, Normal Lips, Normal Oropharynx, Dental Pain (To right upper jaw), Dental Tenderness (To right upper jaw), Other (Poor dentition with caries and missing teeth). No: Normal Teeth, Dental Abcess, Hoarse Voice, Lip Swelling, Lip Ulcers, Muffled Voice, Pharyngeal Erythema, Throat Pain, Throat Swelling, Tonsillar Erythema, Tonsillar Exudates, Tonsillar Swelling Head: Atraumatic, Normocephalic Neck: Normal Inspection, Supple, Non-Tender, Full Range of Motion. No: Lymphadenopathy (L), Lymphadenopathy (R) Respiratory/Chest: No Respiratory Distress, Lungs Clear, Normal Breath Sounds, No Accessory Muscle Use, Chest Non-Tender. No: Crackles, Rales, Rhonchi, Wheezing, Stridor Cardiovascular: Normal Peripheral Pulses, Regular Rate, Rhythm, No Edema, No Gallop, No JVD, No Murmur, No Rub GI/Abdominal: Normal Bowel Sounds, Soft, Non-Tender, No Distention, No Abnormal Bruit, No Mass, Pelvis Stable (Female) Exam: Deferred Rectal (Female) Exam: Deferred Back: Normal Inspection, Full Range of Motion Extremities: Normal Inspection, Normal Range of Motion, Non-Tender, No Pedal Edema, Normal Capillary Refill Neurological: Alert, Oriented, CN II-XII Intact, Normal Cognition, Normal Gait, No Motor/Sensory Deficits Psychiatric: Normal Mood, Flat Affect Skin: Warm, Dry, Intact, Normal Color, No Rash. No: Cyanosis, Ecchymosis, Erythema, Jaundice, Mottled, Pallor, Petechiae Course - Vital Signs Last Recorded V/S: Last Vital Signs Temp 96.9 F 04/02/21 19:10 Pulse 58 L 04/02/21 19:10 Resp 18 04/02/21 19:10 BP 120/42 L 04/02/21 19:10 Pulse Ox 96 04/02/21 19:10 - Orders/Labs/Meds Meds: Medications Discontinued Medications Generic Name Dose Route Start Last Admin Trade Name Chrisq PRN Reason Stop Dose Admin Tramadol HCl 50 mg 04/02/21 19:34 04/02/21 19:50 Tramadol 50 Mg Tab PO 04/02/21 19:35 50 mg ONETIME ONE Administration - Re-Assessments/Exams Free Text/Narrative Re-Assessment/Exam: 04/02/21 Findings of examination reviewed with patient. Will treat acute pain with tramadol. Patient instructed to follow up with primary care dentist for ongoing chronic medical problem. Discussed supportive cares for dental pain. Red flag signs and symptoms which would warrant reevaluation reviewed. Patient verbalized understanding and agreement with the plan of care. Departure - Departure Time of Disposition: 19:53 Disposition: Home, Self-Care 01 Condition: Good Clinical Impression: History of temporomandibular joint disorder, Chronic right ear pain - Discharge Information *PRESCRIPTION DRUG MONITORING PROGRAM REVIEWED*: Not Applicable *COPY OF PRESCRIPTION DRUG MONITORING REPORT IN PATIENT JUICE: Not Applicable Instructions: Temporomandibular Joint Syndrome Forms: ED Department Discharge Additional Instructions: 1.) Follow up with your primary care dentist tomorrow morning. 2.) Wear your dentures, as prescribed. 3.) Avoid chewing gum and hard foods. Eat soft foods and plenty of liquids to stay hydrated. 4.) You may take ibuprofen (Advil/Motrin) 400mg every six hours, as pain persists. You may also take acetaminophen (Tylenol) 650mg every six hours, as pain persists. You may stagger these medications so you are receiving a dose every three hours. 5.) You may apply ice to the area, as pain persists; 20 minutes, every hour. Sepsis Event Note (ED) - Evaluation Sepsis Screening Result: No Definite Risk - Focused Exam Vital Signs: Vital Signs Temp Pulse Resp BP Pulse Ox 04/02/21 19:10 96.9 F 58 L 18 120/42 L 96
== END 2021-04-02 20:09 | disposition home or self-care (01) ==
LOC: DL.ED 18:55
DX: G89.29 Other chronic pain (principal); H92.01 Otalgia, right ear; M19.90 Unspecified osteoarthritis, unspecified site; E11.9 Type 2 diabetes mellitus without complications; Z72.0 Tobacco use; Z86.69 Personal history of other diseases of the nervous system and sense organs; Z79.899 Other long term (current) drug therapy
CPT/HCPCS: 99283; A9270

== ENCOUNTER 2021-04-06 21:18 | Emergency (ER) | payer MEDICAID | END 2021-04-06 23:35 | disposition left against medical advice (07) | LOC: DL.ED 21:18 | DX: Z53.21 Procedure and treatment not carried out due to patient leaving prior to being seen by health care provider (principal) ==

== ENCOUNTER 2021-04-07 16:50 | Emergency (ER) | payer MEDICAID ==
[2021-04-07] MEDS ORDERED: Acetaminophen/HYDROcodone 325-10 MG Tab PO ONE ×2 (16:51→17:15)
[2021-04-07 17:06] VITALS: BP 104/69; PULSE 56
[2021-04-07] MEDS ORDERED: Lidocaine 2% Viscous Solution 15 ML Cup PO ONE (17:15)
--- NOTE | 2021-04-07 17:22 | EDM.PDOC ---
Scribed by Zuly Carpenter 04/07/21 [id number] for Luís Aleman MD ED HPI GENERAL MEDICAL PROBLEM - General Chief Complaint: ENT Problem Stated Complaint: ear ache Time Seen by Provider: 04/07/21 16:56 Source of Information: Reports: Patient, RN, RN Notes Reviewed History Limitations: Reports: No Limitations - History of Present Illness INITIAL COMMENTS - FREE TEXT/NARRATIVE: Patient presents to ED by POV with pain 10/10 to right jaw that radiates to her temples bilaterally, sharp and throbbing in quality. She had a tooth pulled on the right lower side on . She went to [facility] on Thursday due to the pain and was given clindamycin 300mg TID. She states she is taking 800mg ibuprofen Q4H. Patient states she came here last night due to the pain but departed before being seen. She has tried ice packs with a "little" relief. She is also using Anbesol for the tooth pain. Onset: Gradual Duration: Constant Location: Reports: Other (right jaw) Quality: Reports: Ache Severity: Moderate Improves with: Reports: None Worsens with: Reports: None Associated Symptoms: Reports: No Other Symptoms right face Pain Score (Numeric/FACES): 10 - Related Data Allergies Allergy/AdvReac Type Severity Reaction Status Date / Time No Known Allergies Allergy Verified 04/07/21 17:05 Home Meds: Home Meds Alogliptin Benzoate [Alogliptin] 25 mg PO DAILY 12/18/20 [History] Pioglitazone [Actos] 15 mg PO DAILY 12/18/20 [History] Rosuvastatin [Crestor] 10 mg PO BEDTIME 12/18/20 [History] Clindamycin HCl 300 mg PO TID 04/07/21 [History] Ibuprofen 800 mg PO Q4H PRN 04/07/21 [History] Past Medical History - Past Health History Medical/Surgical History: Denies Medical/Surgical History HEENT History: Reports: Other (See Below) Other HEENT History: otitis externa and mastoiditis. 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 Musculoskeletal History: Reports: Arthritis, Osteoarthritis Neurological History: Reports: None Psychiatric History: Reports: Anxiety, Depression Endocrine/Metabolic History: Reports: Diabetes, Type II Hematologic History: Reports: None Immunologic History: Reports: None Oncologic (Cancer) History: Reports: None Dermatologic History: Reports: None - Infectious Disease History Infectious Disease History: Reports: None - Past Surgical History Head Surgeries/Procedures: Reports: None Other Musculoskeletal Surgeries/Procedures:: arm surgery Social & Family History - Family History Family Medical History: No Pertinent Family History - Caffeine Use Caffeine Use: Reports: Coffee, Tea - Living Situation & Occupation Living situation: Reports: , with Family Occupation: Employed ED ROS ENT - Review of Systems Review Of Systems: Comprehensive ROS is negative, except as noted in HPI. ED EXAM, ENT - Physical Exam Exam: See Below Exam Limited By: No Limitations General Appearance: Alert, WD/WN, No Apparent Distress Eye Exam: Bilateral Eye: Normal Inspection Ears: Normal External Exam, Normal Canal, Hearing Grossly Normal, Normal TMs Nose: Normal Inspection, Normal Mucousa, No Blood Mouth/Throat: Normal Lips, Normal Oropharynx, Dental Tenderness (Right mandibular gums inflammed and tender, no drainage, tooth #28 either broke off of s/p extraction) Head: Atraumatic, Normocephalic Neck: Normal Inspection, Supple, Non-Tender, Full Range of Motion. No: Lymphadenopathy (L), Lymphadenopathy (R) Respiratory/Chest: No Respiratory Distress, Lungs Clear Cardiovascular: Regular Rate, Rhythm Neurological: Alert, Oriented, CN II-XII Intact, Normal Cognition, No Motor/Sensory Deficits Psychiatric: Normal Mood, Flat Affect Skin: Warm, Dry, Intact, Normal Color, No Rash Course - Vital Signs Last Recorded V/S: Last Vital Signs Temp 96.6 F L 04/07/21 16:59 Pulse 56 L 04/07/21 16:59 Resp 18 04/07/21 16:59 BP 104/69 04/07/21 16:59 Pulse Ox 96 04/07/21 16:59 - Orders/Labs/Meds Meds: Medications Discontinued Medications Generic Name Dose Route Start Last Admin Trade Name Freq PRN Reason Stop Dose Admin Hydrocodone Bitart/Acetaminophen 1 tab 04/07/21 17:15 Acetaminophen/Hydrocodone 325-10 Mg Tab PO 04/07/21 17:16 ONETIME ONE Lidocaine HCl 15 ml 04/07/21 17:15 Lidocaine 2% Viscous Solution 15 Ml Cup PO 04/07/21 17:16 ONETIME ONE Departure - Departure Time of Disposition: 17:19 Disposition: Home, Self-Care 01 Condition: Good Clinical Impression: Pain, dental - Discharge Information *PRESCRIPTION DRUG MONITORING PROGRAM REVIEWED*: No *COPY OF PRESCRIPTION DRUG MONITORING REPORT IN PATIENT JUICE: No Instructions: Tooth Pulling, Care After Forms: ED Department Discharge Additional Instructions: Rx: Vicodin 10mg/325mg *Do not drive while under the influence of this medication. Rx: Viscous Lidocaine 2% Follow up with dentist or clinic provider tomorrow for recheck and pain management. Sepsis Event Note (ED) - Focused Exam Vital Signs: Vital Signs Temp Pulse Resp BP Pulse Ox 04/07/21 16:59 96.6 F L 56 L 18 104/69 96 I have read and agree with the documentation that has been completed regarding this visit. By signing this record, I attest that the documentation was completed in my physical presence and is an accurate record of the encounter.
[2021-04-07] MEDS ORDERED: Acetaminophen/HYDROcodone 325-10 MG Tab ONE (17:24)
[2021-04-07] MEDS ORDERED: Lidocaine 2% Viscous Solution 15 ML Cup ONE (17:25)
== END 2021-04-07 17:45 | disposition home or self-care (01) ==
LOC: DL.ED 16:50
DX: K08.89 Other specified disorders of teeth and supporting structures (principal); E11.9 Type 2 diabetes mellitus without complications
CPT/HCPCS: 99282; A9270

== ENCOUNTER 2021-04-30 21:21 | Emergency (ER) | payer MEDICAID ==
[2021-04-30 22:54] VITALS: BP 99/38; PULSE 59
--- NOTE | 2021-04-30 23:21 | EDM.PDOC ---
ED HPI GENERAL MEDICAL PROBLEM - General Chief Complaint: ENT Problem Stated Complaint: DOESN'T FEEL WELL, HEADACHE Time Seen by Provider: 04/30/21 23:05 Source of Information: Reports: Patient History Limitations: Reports: No Limitations - History of Present Illness INITIAL COMMENTS - FREE TEXT/NARRATIVE: ED with c/o pain lower left mouth, recent dental extraction last week, unsure if dry socket. Appointment scheduled for next week to follow up., Has had pain radiating to right cheek since extraction , intermittent. No fever or chills. Not having to use tylenol or ibuprofen on routine basis. Right Ear Pain Score (Numeric/FACES): 5 - Related Data Allergies Allergy/AdvReac Type Severity Reaction Status Date / Time No Known Allergies Allergy Verified 04/07/21 17:05 Home Meds: Home Meds Alogliptin Benzoate [Alogliptin] 25 mg PO DAILY 12/18/20 [History] Pioglitazone [Actos] 15 mg PO DAILY 12/18/20 [History] Rosuvastatin [Crestor] 10 mg PO BEDTIME 12/18/20 [History] Clindamycin HCl 300 mg PO TID 04/07/21 [History] Ibuprofen 800 mg PO Q4H PRN 04/07/21 [History] Past Medical History - Past Health History Medical/Surgical History: Denies Medical/Surgical History HEENT History: Reports: Other (See Below) Other HEENT History: otitis externa and mastoiditis. 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 Musculoskeletal History: Reports: Arthritis, Osteoarthritis Neurological History: Reports: None Psychiatric History: Reports: Anxiety, Depression Endocrine/Metabolic History: Reports: Diabetes, Type II Hematologic History: Reports: None Immunologic History: Reports: None Oncologic (Cancer) History: Reports: None Dermatologic History: Reports: None - Infectious Disease History Infectious Disease History: Reports: None - Past Surgical History Head Surgeries/Procedures: Reports: None Other Musculoskeletal Surgeries/Procedures:: arm surgery Social & Family History - Family History Family Medical History: No Pertinent Family History - Tobacco Use Tobacco Use Status *Q: Current Every Day Tobacco User Years of Tobacco use: 43 Packs/Tins Daily: 0.1 Second Hand Smoke Exposure: Yes - Caffeine Use Caffeine Use: Reports: Coffee - Recreational Drug Use Recreational Drug Use: No - Living Situation & Occupation Living situation: Reports: , with Family Occupation: Employed ED ROS ENT - Review of Systems Review Of Systems: Comprehensive ROS is negative, except as noted in HPI. ED EXAM, ENT - Physical Exam Exam: See Below Exam Limited By: No Limitations General Appearance: Alert, No Apparent Distress, Anxious Eye Exam: Bilateral Eye: EOMI Ears: Normal External Exam, Hearing Grossly Normal, Normal TMs Nose: Normal Inspection Mouth/Throat: Other (mild gum swelling left lower front minimal tenderness with palpation of area) Head: Atraumatic, Normocephalic Respiratory/Chest: No Respiratory Distress, Lungs Clear Cardiovascular: Regular Rate, Rhythm Psychiatric: Anxious Skin: Warm, Dry, Intact, Normal Color Course - Vital Signs Last Recorded V/S: Last Vital Signs Temp 97.1 F 04/30/21 22:48 Pulse 59 L 04/30/21 22:48 Resp 18 04/30/21 22:48 BP 99/38 L 04/30/21 22:48 Pulse Ox 99 04/30/21 22:48 Departure - Departure Time of Disposition: 23:18 Disposition: Home, Self-Care 01 Condition: Good Clinical Impression: Right-sided face pain, Pain, dental - Discharge Information *PRESCRIPTION DRUG MONITORING PROGRAM REVIEWED*: No *COPY OF PRESCRIPTION DRUG MONITORING REPORT IN PATIENT JUICE: No Instructions: Dental Pain, Dental Dry Socket, [id number] Forms: ED Department Discharge Additional Instructions: oral rinses after meals alternate tylenol 500mg and ibuprofen 600mg every 4 hours as needed folow up with dentist if continued discomfort Sepsis Event Note (ED) - Focused Exam Vital Signs: Vital Signs Temp Pulse Resp BP Pulse Ox 04/30/21 22:48 97.1 F 59 L 18 99/38 L 99
== END 2021-04-30 23:30 | disposition home or self-care (01) ==
LOC: DL.ED 21:21
DX: K08.89 Other specified disorders of teeth and supporting structures (principal); R51.9 Headache, unspecified; E11.9 Type 2 diabetes mellitus without complications; Z72.0 Tobacco use
CPT/HCPCS: 99282

== ENCOUNTER 2021-05-20 06:49 | Day surgery (SDC) | payer MEDICAID ==
[~2021-05-20 06:49] MED LIST: Midazolam 1 MG/ML 2 ML SDV ONE; fentaNYL 100 MCG/2 ML SDV ONE
[2021-05-20] MEDS ORDERED: Midazolam 1 MG/ML 2 ML SDV IV ONE ×3 (06:50→07:28)
[2021-05-20] MEDS ORDERED: fentaNYL 100 MCG/2 ML SDV IV ONE ×3 (06:50→07:26)
[2021-05-20] MEDS ORDERED: Dextrose 5%-0.45% NaCl 1,000 ML IV SCH (07:00)
--- NOTE | 2021-05-20 11:37 | OR ---
DATE: 05/20/2021 PROCEDURES: Esophagogastroduodenoscopy and multiple pinch biopsies. INSTRUMENT USED: [id number]-HQ190 Olympus video panendoscope. PREMEDICATIONS: No oral or topical anesthesia used. Fentanyl 100 mcg intravenous, Versed 2 mg intravenous. 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 INDICATION: The patient with unexplained iron-deficiency anemia. Esophagogastroduodenoscopy is performed for detection of any active erosive lesions, Feliz esophagus and/or malignancy also under consideration, H pylori status to be determined, small bowel biopsies to be obtained for any evidence of celiac disease, endoscopic hemostasis therapy if needed. PROCEDURE IN DETAIL: The scope was passed with ease. Adequate visualization of the esophagus was made from proximal to distal areas. No upper esophageal lesions identified. No distal esophageal stricture. No uphill or downhill esophageal varices. No Jeri-Polo tear. No evidence of erosive esophagitis by [place] criteria. No esophageal polyp or tumor mass identified. Z-line was seen at around 39 cm distal to the oral verge. No proximal gastric varices noted. Gastric fundus examination by retroflexion showed no polypoid lesions. No gastric ulcer, malignant mass, or vascular ectasia identified. Numerous scattered antral erosions were noted without bleeding from them. Duodenal bulb showed no ulcer. Visualized second part of the duodenum was unremarkable. Multiple pinch biopsies, 4 in number, were taken from different areas of the second part of the duodenum, and tissues were also obtained from the duodenal bulb at 9 and 12 o'clock positions and sent for any histopathologic evidence of celiac disease. Multiple pinch biopsies were also taken from the gastric antrum and proximal body and sent for PyloriTek test for H pylori and histopathology. No bleeding was noted from any of the visualized areas at the completion of examination. Photographs were taken of the duodenal bulb, gastric antrum, fundus, and distal esophagus. IMPRESSION: Gastric antral erosions. The patient tolerated the procedure well. [facility] /[id number]
[2021-05-20 11:42] VITALS: BP 107/51; PULSE 50
--- NOTE | 2021-05-21 08:37 | LETTER ---
05/20/2021 RE: TOI JACOBO : 1960 Marko Verde MD [facility] [address] [place] [address] Verde: Ms. Toi Jacobo had esophagogastroduodenoscopy done this morning, and she tolerated the procedure well. I herewith send a copy of the endoscopy note and photographs for your review. Thank you. Sincerely, [facility] /[id number]
== END 2021-05-20 10:00 | disposition home or self-care (01) ==
LOC: DL.ENDO 06:49
PROVIDERS: ATTEND Internal Medicine Gastroenterology
DX: K29.50 Unspecified chronic gastritis without bleeding (principal); K31.89 Other diseases of stomach and duodenum; D50.9 Iron deficiency anemia, unspecified; K25.9 Gastric ulcer, unspecified as acute or chronic, without hemorrhage or perforation; E66.01 Morbid (severe) obesity due to excess calories; E11.9 Type 2 diabetes mellitus without complications; E55.9 Vitamin D deficiency, unspecified; Z88.8 Allergy status to other drugs, medicaments and biological substances; Z98.890 Other specified postprocedural states; Z68.31 Body mass index [BMI] 31.0-31.9, adult
CPT/HCPCS: 43239; 87077; J2250; J3010; J7042

== ENCOUNTER 2021-05-23 08:00 | Day surgery (SDC) | payer MEDICAID ==
[~2021-05-23 08:00] MED LIST changes: +Dextrose 5%-0.45% NaCl 1,000 ML IV SCH; +Sodium Chloride 0.9% 10 ML Syringe FLUSH PRN
[2021-05-23] MEDS ORDERED: Midazolam 1 MG/ML 2 ML SDV IV ONE ×7 (08:01→08:55)
[2021-05-23] MEDS ORDERED: fentaNYL 100 MCG/2 ML SDV IV ONE ×4 (08:01→08:58)
[2021-05-23 09:05] VITALS: BP 99/75; PULSE 61
--- NOTE | 2021-05-23 15:01 | OR ---
DATE: 05/23/2021 PROCEDURES: Total colonoscopy and multiple cold snare polypectomies. INSTRUMENT USED: [id number]-[id number] Olympus video colonoscope. PREMEDICATIONS: Fentanyl 125 mcg intravenous, Versed 4 mg intravenous, nasal O2 cannula. The procedure was done under pulse oximetry, BP recording, and scrap wheeler. INDICATION: The patient with iron-deficiency anemia. Colonoscopic examination is done for detection of any polypoid lesions and removal, endoscopic hemostasis therapy if needed. DESCRIPTION OF PROCEDURE: Initial rectal exam was unremarkable. Rigid anoscopy was normal. The colonoscope was passed with ease. In the distal descending colon, 3 mm sized benign-appearing polyp was noted, cold snare polypectomy was done, the tissue was retrieved and sent for histopathology. In the mid descending colon, 2 polyps were noted, 1 diminutive, the other one 5 mm in size, photographs were taken, cold snare polypectomies were done, the tissues were retrieved and sent for histopathology. The scope was passed with ease up to the ileocecal area. Photographs were taken of the normal-appearing cecum, identified by landmarks of appendiceal orifice and double-bulged ileocecal folds. No bleeding was noted from any of the visualized areas at the commencement of the examination. No stricture. No vascular ectasia. No large isolated ulcerations seen. No evidence of diffuse inflammatory bowel disease in the form of friability, contact bleeding, or ulcerations. There was large amount of liquid and some solid fecal material that had to be aspirated, bowel perforation inadequate. [place] scale 2 in all the areas, total score 6. Probing the proximal sides of folds and flexures using adequate distention and clearing up the stool material, withdrawal of the scope was made, cecum to rectum time over 6 minutes. No bleeding was noted from any of the visualized areas at the completion of examination. IMPRESSION: Multiple colonic polyps. The patient tolerated the procedure well. [facility] /[id number]
--- NOTE | 2021-05-24 07:37 | LETTER ---
05/23/2021 RE: TOI JACOBO : 1960 Marko Verde MD [facility] [address] [place] [address] Verde: Ms. Toi Jacobo had colonoscopic examination done this morning and she tolerated the procedure well. I herewith send a copy of the endoscopy note and photographs for your review. Thank you. Sincerely. [facility] /[id number]
== END 2021-05-23 11:11 | disposition home or self-care (01) ==
LOC: DL.ENDO 08:00
PROVIDERS: ATTEND Internal Medicine Gastroenterology
DX: D12.4 Benign neoplasm of descending colon (principal); D50.9 Iron deficiency anemia, unspecified; F17.210 Nicotine dependence, cigarettes, uncomplicated; E66.09 Other obesity due to excess calories; E11.9 Type 2 diabetes mellitus without complications; F32.9 Major depressive disorder, single episode, unspecified; E55.9 Vitamin D deficiency, unspecified; Z01.812 Encounter for preprocedural laboratory examination; Z20.822 Contact with and (suspected) exposure to COVID-19
CPT/HCPCS: 45385; 87635; J2250; J3010; J7042; U0002

== ENCOUNTER 2022-07-12 18:00 | Emergency (ER) | payer MEDICAID ==
[2022-07-12 20:18] VITALS: BP 95/75; PULSE 56
[2022-07-12] MEDS ORDERED: Ketorolac 30 MG/ML SDV IM ONE (20:49)
== END 2022-07-12 21:34 | disposition home or self-care (01) ==
LOC: DL.ED 18:00
DX: S89.92XA Unspecified injury of left lower leg, initial encounter (principal); M19.90 Unspecified osteoarthritis, unspecified site; E11.9 Type 2 diabetes mellitus without complications; Z72.0 Tobacco use; Z88.8 Allergy status to other drugs, medicaments and biological substances; Z88.7 Allergy status to serum and vaccine; Z79.4 Long term (current) use of insulin; Z79.899 Other long term (current) drug therapy; Z79.82 Long term (current) use of aspirin; X50.1XXA Overexertion from prolonged static or awkward postures, initial encounter
CPT/HCPCS: 96372; 99283; J1885

== ENCOUNTER 2024-11-14 15:41 | Emergency (ER) | payer MEDICAID ==
[2024-11-14 16:08] VITALS: BP 99/75; PULSE 66
[2024-11-14 16:55] LABS: PROTHROMBIN TIME 10.3 SEC (9.0-12.0)
[2024-11-14 16:56] LABS: BASOPHILS PERCENT AUTO 0.7 % (0.0-1.0); EOSINOPHILS PERCENT AUTO 3.7 % (1.0-3.0); HEMATOCRIT 42.7 % (37.0-47.0); HEMOGLOBIN 13.8 g/dL (12.0-16.0); LYMPHOCYTES PERCENT AUTO 28.4 % (20.5-50.1); MEAN CORPUSCULAR HEMOGLOBIN 26.6 pg (27.0-34.0); MEAN CORPUSCULAR HGB CONC 32.3 g/dL (33.0-35.0); MEAN CORPUSCULAR VOLUME 82.3 fL (80-100); MONOCYTES PERCENT AUTO 7.7 % (2-8); NEUTROPHILS PERCENT AUTO 59.5 % (42.2-75.2); PLATELET COUNT,PLT 260 10^3/uL (150-450); RED BLOOD CELL COUNT 5.19 10^6/uL (4.2-5.4)
[2024-11-14 17:02] LABS: ALBUMIN 3.3 g/dL (3.4-5.0); BILIRUBIN TOTAL 0.5 mg/dL (0.2-1.0); BUN/CREATININE RATIO 10.1 (No establ ref range); CALCIUM 9.1 mg/dL (8.5-10.1); CREATININE 0.89 mg/dL (0.55-1.02); EST CRCL DRUG DOSING (CG) 50.51 mL/min; PROTEIN TOTAL,TP 7.8 g/dL (6.4-8.2)
[2024-11-14 17:07] LABS: ANION GAP 13.2 mEq/L (7-13); POTASSIUM,K 4.2 mmol/L (3.5-5.1)
[2024-11-14 17:08] LABS: A/G RATIO 0.73
== END 2024-11-14 17:26 | disposition home or self-care (01) ==
LOC: DL.ED 15:41
DX: J06.9 Acute upper respiratory infection, unspecified (principal); B97.89 Other viral agents as the cause of diseases classified elsewhere; E11.9 Type 2 diabetes mellitus without complications; E03.9 Hypothyroidism, unspecified; M19.90 Unspecified osteoarthritis, unspecified site; Z88.8 Allergy status to other drugs, medicaments and biological substances; Z79.899 Other long term (current) drug therapy; Z79.4 Long term (current) use of insulin; Z79.82 Long term (current) use of aspirin; Z68.29 Body mass index [BMI] 29.0-29.9, adult
CPT/HCPCS: 36415; 80053; 82947; 84484; 85025; 85610; 87428-QW; 93005; 93010; 99283; 99284